=== PATIENT | female | born 1935 | race Hispanic/Latino ===

== ENCOUNTER 2017-07-21 14:50 | Emergency (ER) | payer MEDICARE, MEDICAID ==
[2017-07-21 15:11] VITALS: BMI 26.1
[2017-07-21] MEDS ORDERED: Sodium Chloride 0.9% 1,000 ML IV STA (15:14)
[2017-07-21] MEDS ORDERED: Morphine 4 mg/ml ISec IVP STA (15:14)
--- NOTE | 2017-07-21 16:04 | ED PDOC ---
Arrival/HPI - General Chief Complaint: Trauma Time Seen by Provider: 07/21/17 15:14 - History of Present Illness Narrative History of Present Illness (Text): 07/21/17 16:05 82yo female with LLE pain after a mechanical fall 6 days ago. Pt states she had a mechanical fall and recalls the event. States she has pain over her neck, ribs , R. elbow and LLE. Denies head injury. States she ambulates with a cane and has been ambulating since her fall. No other complaints. Past Medical History - Provider Review Nursing Documentation Reviewed: Yes - Infectious Disease Hx of Infectious Diseases: None - Tetanus Immunization Tetanus Immunization: Unknown - Cardiac Hx Congestive Heart Failure: No Hx SD: Yes Hx Hypertension: Yes Hx Internal Defibrillator: No Hx Pacemaker: No - Pulmonary Hx Pneumonia: Yes - Neurological HX Cerebrovascular Accident: No Hx Seizures: Yes (LAST SEIZURE 3 WEEKS AGO) - HEENT Hx Cataracts: Yes (BILATERAL CATARACT SURGERY) Other/Comment: WEARS RX GLASSES - Renal Hx Renal Disorder: No - Endocrine/Metabolic Hx Endocrine Disorders: No - Hematological/Oncological Other/Comment: RECTAL BLEEDING - Integumentary Hx Dermatological Disorder: No - Musculoskeletal/Rheumatological Hx Arthritis: Yes - Gastrointestinal Hx Diverticulitis: Yes - Genitourinary/Gynecological Hx Genitourinary Disorders: No - Psychiatric Hx Anxiety: Yes Hx Depression: No Hx Emotional Abuse: No Hx Physical Abuse: No Hx Substance Use: No - Surgical History Hx Appendectomy: Yes Hx Cardiac Catheterization: No Hx Cholecystectomy: Yes Hx Coronary Stent: No Hx Open Heart Surgery: No Hx Valve Replacement: No - Anesthesia Hx Anesthesia Reactions: No Hx Malignant Hyperthermia: No - Suicidal Assessment Feels Threatened In Home Enviroment: No Family/Social History Family/Social History: Unknown Family HX Smoking Status: Former Smoker Hx Alcohol Use: No Hx Substance Use: No Hx Substance Use Treatment: Yes Allergies/Home Meds Allergies/Adverse Reactions: Allergies amoxicillin Allergy (Verified 07/21/17 15:08) RASH Penicillins Allergy (Verified 07/21/17 15:08) RASH Home Medications: Home Meds Medication Instructions Recorded Confirmed Carvedilol [Coreg] 25 mg PO DAILY 07/21/17 07/21/17 Lisinopril [Zestril] 2.5 mg PO DAILY 07/21/17 07/21/17 Phenytoin, Extended [Dilantin 100 mg PO TID 07/21/17 07/21/17 Kapseals] oxyCODONE [oxyCODONE Immediate 15 mg PO PRN PRN 07/21/17 07/21/17 Release Tab] Physical Exam - Physical Exam Narrative Physical Exam (Text): 07/21/17 16:08 - Review of Systems Constitutional: Normal. absent: Fatigue, Weight Change, Fevers Eyes: Normal ENT: denies sore throat, denies tristhmus Respiratory: Normal. absent: SOB, Cough, Sputum Cardiovascular: absent: Chest Pain, Palpitations, Syncope Gastrointestinal: Normal. absent: Abdominal Pain, Diarrhea, Nausea, Vomiting Genitourinary: Normal. absent: Dysuria, Frequency, Hematuria, vaginal bleeding Musculoskeletal: Arthralgias, Back Pain, Neck Pain Skin: no rashes, no erythema Neurological: absent: Focal Weakness Endocrine: Normal Hemo/Lymphatic: Normal Psychiatric: No suicidal or homicidal ideations Physical exam Patient appears age appropriate in no distress, speaking full sentences without difficulty Head atraumatic. No nasal bone deformity or tenderness, no facial or jaw pain/ swelling. No neck midline tenderness, thoracic and lumbar spine with no midline tenderness. Pt moving b/l upper and lower extremities without difficulty, 5/5 strength, with full active and passive ROM. Distal neurovasc fully intact. Abd soft/nt/nd, no hematomas, no peritoneal signs. Neg. pelvic rock. - Systems Exam Head: Present: Atraumatic, Normocephalic Pupils: Present: PERRL Extroacular Muscles: Present: EOMI Conjunctiva: Present: Normal Mouth: Present: Moist Mucous Membranes Neck: Present: Normal Range of Motion. Paraspinal tenderness over the R. lower neck. No: MIDLINE TENDERNESS Respiratory/Chest: Present: Clear to Auscultation, Good Air Exchange. No: Respiratory Distress, Accessory Muscle Use, Tachypneic Cardiovascular: Present: Regular Rate and Rhythm, Normal S1, S2, Peripheal Pulses Present. No: Murmurs Abdomen: Present: Normal Bowel Sounds. No: Tenderness, Distention, Peritoneal Signs, Rebound, Guarding Back: Present: Normal Inspection. No: Midline Tenderness, Paraspinal Tenderness Upper Extremity: Present: R. elbow with ecchymosis, but full active and passive ROM Lower Extremity: Present: LLE with diffuse ecchymosis over the anterior thigh, knee, ankle. Distal neurovasc. intact. No: Cyanosis. RLE unremarkable on examination. Neurological: Present: GCS=15, Speech Normal, cranial nerves II through XII fully intact with no cerebellar abnormality, neurosensory fully intact. No focal neurological deficits. Skin: Present: Warm, Dry, Normal Color. No: Rashes Lymphatic: Present: OX3, NI, NC Psychiatric: Present: Alert, Oriented x 3, Normal Insight, Normal Concentration Vital Signs Reviewed: Yes Vital Signs Pulse Resp BP Pulse Ox 07/21/17 18:13 76 18 123/69 97 07/21/17 15:06 76 20 153/69 H 100 Blood Pressure: Hypertensive Pulse: Regular Respiratory Rate: Normal Appearance: Positive for: Non-Toxic, Comfortable Pain Distress: Mild Mental Status: Positive for: Alert and Oriented X 3. No: Confused, Agitated, Lethargic Medical Decision Making ED Course and Treatment: 07/21/17 16:22 82yo female after a mechanical fall, R. elbow and LLE contusions. b/l rib pains , with good insp/exp effort. Paraspinal neck tenderness. xrays and CTs ordered, along with pain meds and labs. 07/21/17 18:08 L. knee xray with possible fx. CT ordered. 07/21/2017 17:[address] IMPRESSION: 1. No acute intracranial abnormality. 2. Remote right LIFESTYLE DIRECTOR and MCA LIFESTYLE DIRECTOR watershed territory infarctions. 3. 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 4. Mild chronic microangiopathic changes and moderate age-related global parenchymal volume loss. Dictator: Blanca Sepulveda MD 07/21/2017 17:44 Neck/Chest/Abdomen/Pelvis CT IMPRESSION: 1. No acute findings. No evidence of pneumothorax, lung contusion, pneumoperitoneum or hemoperitoneum or acute fracture. 2. Additional chronic as described above. 3. Enlarged right thyroid lobe with a nodule in the lower pole and retrosternal extension. A dedicated thyroid ultrasound on a nonemergent basis is recommended for further evaluation. Dictator: Blanca Sepulveda MD 07/21/17 elbow, femur, ankle xrays with no fx's or dislocations. interpreted by me. FINDINGS: CT knee (ordered due to questionable fx on xray) Bones/joints: The distal femur is intact. Proximal tibia is intact. Proximal fibula is intact. Patella is intact. Bony structures are osteopenic. There is mild narrowing of the medial joint. Lateral and patellofemoral joint spaces are maintained. Soft tissues: There is soft tissue swelling in the anterior soft tissues inferior to the patella. There is no effusion in the suprapatella bursa. There are vascular calcifications.. IMPRESSION: Anterior soft tissue swelling; osteopenia and mild degenerative change, no fracture or or effusion Dictated and Authenticated by: Shaye Light MD7 20:08 07/21/17 20:26 pt ambulates with a cane. states she ambulates with a cane at home. ambulated in the ER without difficulty. pt states she wants to go home and she feels comfortable being dc'd home with outpatient f/u. pt states she lives with her daughter. will be given percocet for pain at home. pt states she's had percocet in the past and it did not make her drowsy and she tolerated it well. had an extensive d/w pt that although xrays are negative for any acute bony abnormality, it is still very important to fu with pmd and ortho specialist for further w/u and testing such as MRI to r/o any ligamentous/tendenous/meniscal injury. Pt verbalized full understanding of above discussion. Pt states she understands to return to the ER right away for new or worsening symptoms or for inability to f/u with PMD or specialist as instructed. Patient states that she fully agrees with and understands discharge instructions. States that she agrees with the plan and disposition. Verbalized and repeated discharge instructions and plan. I have given the patient opportunity to ask any additional questions. - Lab Interpretations Lab Results: 07/21/17 16:00 07/21/17 16:00 Lab Results 07/21/17 16:00: WBC 6.7, RBC 3.62, Hgb 11.4 L, Hct 34.0 L, MCV 93.9, MCH 31.5, MCHC 33.5, RDW 13.2, Plt Count 130, MPV 9.0, Gran % 57.9, Lymph % (Auto) 27.3, [place] % (Auto) 9.0 H, Eos % (Auto) 5.4 H, Baso % (Auto) 0.4, Gran # 3.86, Lymph # 1.8, [place] # 0.6, Eos # 0.4, Baso # 0.03 07/21/17 16:00: PT 11.4, INR 1.06, APTT 25.0 07/21/17 16:00: Sodium 143, Potassium 4.1, Chloride 109 H, Carbon Dioxide 24, Anion Gap 14, BUN 21, Creatinine 1.1, Est GFR ( Amer) 58, Est GFR (Non- Af Amer) 48, Random Glucose 90, Calcium 8.9, Total Bilirubin 0.6, AST 40 H, ALT 32, Alkaline Phosphatase 93, Total Protein 7.0, Albumin 3.7, Globulin 3.3, Albumin/Globulin Ratio 1.1 07/21/17 15:30: Phenytoin 25 H* - RAD Interpretation Radiology Orders: 07/21/17 15:15 HEAD W/O CONTRAST [CT] Stat NECK,CHEST,ABD,PELVIS W/O CONT [CT] Stat ANKLE LEFT 3 VIEWS ROUTINE [RAD] Stat ELBOW RIGHT 3 VIEWS ROUTINE [RAD] Stat FEMUR 1 VIEW LT [RAD] Stat KNEE LEFT 2 VIEWS (AP & LAT) [RAD] Stat 07/21/17 18:07 KNEE WITHOUT CONTRAST LEFT [CT] Stat - Medication Orders Current Medication Orders: Discontinued Medications Sodium Chloride (Sodium Chloride 0.9%) 1,000 mls @ 1,000 mls/hr IV .Q1H STA Stop: 07/21/17 16:13 Last Admin: 07/21/17 15:48 Dose: 1,000 mls/hr eMAR Start Stop Document 07/21/17 15:48 (Rec: 07/21/17 15:49 [id number]) Intravenous Solution Start Date 07/21/17 Start Time 15:48 End Date 07/21/17 End time 16:48 Total Infusion Time 60 Morphine Sulfate (Morphine) 4 mg IVP STAT STA Stop: 07/21/17 15:15 Last Admin: 07/21/17 15:47 Dose: 4 mg MAR Pain Assessment Document 07/21/17 15:47 MR (Rec: 07/21/17 15:48 [id number]) Pain Reassessment Is this a pain reassessment? No Sleep Is patient sleeping during reassessment? No Presence of Pain Presence of Pain Yes Pain Scale Used Pain Scale Used Numeric Location Left, Right or Bilateral Bilateral Pain Location Body Site Neck Shoulder Hip Leg Description Description Constant Intensity of Pain at present 8 Pain Behavior Moaning Crying Irritability Withdrawal from Touch Facial Grimacing Aggravating Factors Changing Position Alleviating Factors/Management Medication Techniques Alleviating Factors Medication IVP Administration Document 07/21/17 15:47 MR (Rec: 07/21/17 15:48 MR [id number]) Charges for Administration # of IVP Administrations 1 Disposition/Present on Arrival - Present on Arrival Any Indicators Present on Arrival: No History of DVT/PE: No History of Uncontrolled Diabetes: Yes Urinary Catheter: No History of Decub. Ulcer: No History Surgical Site Infection Following: None - Disposition Have Diagnosis and Disposition been Completed?: Yes Diagnosis: Fall Disposition: HOME/ ROUTINE Disposition Time: 20:30 Patient Plan: Discharge Condition: GOOD Discharge Instructions (ExitCare): Fall Prevention for Older Adults (ED), Contusion in Adults (ED) Additional Instructions: PLEASE RETURN TO THE EMERGENCY DEPARTMENT FOR NEW OR WORSENING SYMPTOMS. RETURN RIGHT AWAY IF YOU CANNOT FOLLOW UP WITH YOUR PRIMARY CARE DOCTOR, CLINIC, OR SPECIALIST IN 1-2 DAYS. Prescriptions: oxyCODONE/Acetaminophen [Percocet 5/325 mg Tab] 1 ea PO TID #12 tab Referrals: PCP,LASHON [Primary Care Provider] - Follow up with primary Rashad Farrell MD [Staff Provider] - Follow up with primary Juvencio Mendoza MD [Staff Provider] - Follow up with primary Francisco Woodson DO [Staff Provider] - Follow up with primary Forms: [employer] (Greek)
[2017-07-21 16:17] LABS: BASO # 0.03 K/mm3 (0.0-2.0); BASO % 0.4 % (0.0-3.0); EOS # 0.4 (0.0-0.7); EOS % 5.4 % (1.5-5.0); GRAN # 3.86 (1.4-6.5); GRAN % 57.9 % (50.0-68.0); LYMPH # 1.8 (1.2-3.4); LYMPH % 27.3 % (22.0-35.0); MEAN CELL VOLUME 93.9 fl (80.0-105.0); MEAN CORPUSCULAR HEMOGLOBIN 31.5 pg (25.0-35.0); MEAN CORPUSCULAR HGB CONC 33.5 g/dl (31.0-37.0); MONO # 0.6 (0.1-0.6); RED CELL DISTRIBUTION WIDTH 13.2 % (11.5-14.5); WHITE BLOOD COUNT 6.7 10^3/ul (4.5-11.0)
[2017-07-21 16:31] LABS: ALB/GLOB RATIO 1.1 (1.1-1.8); BILIRUBIN,TOTAL 0.6 mg/dL (0.2-1.3); CALCIUM 8.9 mg/dL (8.4-10.5); POTASSIUM 4.1 mmol/L (3.6-5.0)
[2017-07-21 16:51] LABS: INR 1.06 (0.93-1.08)
--- NOTE | 2017-07-21 17:10 | CT ---
PROCEDURE: CT HEAD WITHOUT CONTRAST. HISTORY: Fall COMPARISON: None available. TECHNIQUE: Axial computed tomography images were obtained through the head/brain without intravenous contrast. Radiation dose: Total exam DLP = 725.84 mGy-cm. This CT exam was performed using one or more of the following dose reduction techniques: Automated exposure control, adjustment of the mA and/or kV according to patient size, and/or use of iterative reconstruction technique. FINDINGS: HEMORRHAGE: No intracranial hemorrhage. BRAIN: There is cystic encephalomalacia in the right occipital lobe and parieto-occipital watershed territory. There is an old infarction in the left parasagittal frontal lobe. There are mild chronic microangiopathic changes. There is no mass, mass effect or abnormal extra-axial fluid collection. There are coarse atherosclerotic calcifications in the cavernous carotid arteries. VENTRICLES: There is moderate age-related global parenchymal volume loss and proportionate enlargement of the ventricles and cortical sulci. CALVARIUM: There is mild hyperostosis frontalis interna. PARANASAL SINUSES: There is moderate mucosal thickening in the right maxillary sinus and mild mucosal thickening in the ethmoid air cells and left maxillary sinus. MASTOID AIR CELLS: Predominantly clear. OTHER FINDINGS: None. IMPRESSION: 1. No acute intracranial abnormality. 2. 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 3. 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 4. Mild chronic microangiopathic changes and moderate age-related global parenchymal volume loss.
--- NOTE | 2017-07-21 17:46 | CT ---
PROCEDURE: CT Neck, Chest, Abdomen and Pelvis without intravenous contrast HISTORY: Fall COMPARISON: None. TECHNIQUE: CT scan of the neck, chest, abdomen and pelvis was performed without administration of intravenous contrast. Oral contrast was not administered. Coronal and sagittal reformatted images were obtained. Radiation dose: Total exam DLP = 2345.67 mGy-cm. This CT exam was performed using one or more of the following dose reduction techniques: Automated exposure control, adjustment of the mA and/or kV according to patient size, and/or use of iterative reconstruction technique. FINDINGS: CT NECK: The oropharynx, nasopharynx, oral cavity, hypopharynx, vocal cords and subglottic region are grossly normal in appearance. No evidence of soft tissue emphysema or airway obstruction. The parotid glands and submandibular glands are normal in size and appearance. There is asymmetric enlargement of the right thyroid gland with a low-attenuation nodule in the lower pole and retrosternal extension. The left thyroid lobe is grossly normal in appearance. No pathologic lymphadenopathy. CT CHEST WITHOUT CONTRAST: LUNGS: There is mild paraseptal emphysema in the upper lobes. There is scattered centrilobular emphysema in the lungs. There are fibrotic changes in the lower lobes, worse on the left. There is bibasilar atelectasis. MEDIASTINUM: There is mild cardiomegaly. Normal caliber aorta and pulmonary arterial trunk. No pericardial effusion. LYMPH NODES: No pathologic lymphadenopathy. PLEURA: No pneumothorax. No pleural fluid. BONES: Unremarkable. OTHER FINDINGS: None. CT ABDOMEN AND PELVIS: LIVER: The liver is normal in size. No gross lesion or ductal dilatation. GALLBLADDER AND BILE DUCTS: Not visualized. PANCREAS: The pancreas is normal in size. No gross lesion or ductal dilatation. SPLEEN: The spleen is normal in size. ADRENALS: Both adrenal glands are normal without discrete nodule. KIDNEYS AND URETERS: There is cortical atrophy of both kidneys. There are multiple cortical simple cysts and parapelvic cysts in the left kidney. VASCULATURE: There are atherosclerotic aortoiliac calcifications. No aortic aneurysm. BOWEL: The small bowel loops are normal in caliber. There is sigmoid diverticulosis without CT evidence for acute diverticulitis. APPENDIX: Not visualized. PERITONEUM: No free fluid. No free air. LYMPH NODES: No enlarged lymph nodes. BLADDER: Unremarkable. REPRODUCTIVE: Unremarkable. BONES: No acute fracture. OTHER FINDINGS: None. IMPRESSION: 1. No acute findings. No evidence of pneumothorax, lung contusion, pneumoperitoneum or hemoperitoneum or acute fracture. 2. Additional chronic findings as described above. 3. Enlarged right thyroid lobe with a nodule in the lower pole and retrosternal extension. A dedicated thyroid ultrasound on a nonemergent basis is recommended for further evaluation.
[2017-07-21 18:14] VITALS: RESP 18; O2SAT 97
--- NOTE | 2017-07-21 18:35 | CARD ---
APPROVED REPORT EKG Measurement Heart [id number] ID [id number] <Conclusion> Normal sinus rhythm Inferior infarct, age undetermined Abnormal ECG
--- NOTE | 2017-07-21 18:42 | CARD ---
APPROVED REPORT EKG Measurement Heart [id number] <Conclusion> sinus rhythm Inferior infarct, age undetermined Abnormal ECG
--- NOTE | 2017-07-21 20:06 | CT ---
EXAM: CT Left Lower Extremity Without Intravenous Contrast, Knee EXAM DATE/TIME: 07/21/2017 6:07 PM CLINICAL HISTORY: 82 years old, female; Pain; Knee; Left; Additional info: Fall, RO FX TECHNIQUE: Axial computed tomography images of the left knee without intravenous contrast. All CT scans at this facility use one or more dose reduction techniques, viz.: automated exposure control; ma/kV adjustment per patient size (including targeted exams where dose is matched to indication; i.e. head); or iterative reconstruction technique. Coronal and sagittal reformatted images were created and reviewed. COMPARISON: DX - KNEE LEFT 2 VIEWS (AP LAT) 07/21/2017 5:20:57 PM FINDINGS: Bones/joints: The distal femur is intact. Proximal tibia is intact. Proximal fibula is intact. Patella is intact. Bony structures are osteopenic. There is mild narrowing of the medial joint. Lateral and patellofemoral joint spaces are maintained. Soft tissues: There is soft tissue swelling in the anterior soft tissues inferior to the patella. There is no effusion in the suprapatella bursa. There are vascular calcifications.. IMPRESSION: Anterior soft tissue swelling; osteopenia and mild degenerative change, no fracture or or effusion
[2017-07-21 20:48] VITALS: BP 123/86; PULSE 83
--- NOTE | 2017-07-22 08:22 | RAD ---
PROCEDURE: Left Knee Radiographs. HISTORY: Pain. COMPARISON: None. FINDINGS: BONES: There is no acute displaced fracture or bone destruction. Bone alignment is normal. There is diffuse bone demineralization. JOINTS: There is mild tricompartmental degenerative osteoarthrosis, worse in the medial compartment. . JOINT EFFUSION: None. OTHER FINDINGS: Atherosclerotic vascular calcifications are present. IMPRESSION: No acute fracture or dislocation. 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
--- NOTE | 2017-07-22 09:52 | RAD ---
PROCEDURE: Left femur HISTORY: Trauma COMPARISON: None TECHNIQUE: Standard protocol for this study/examination. FINDINGS: No significant/acute osseous, articular or soft tissue abnormalities. IMPRESSION: No acute findings related to/accounting for the clinical presentation.
--- NOTE | 2017-07-22 10:34 | RAD ---
PROCEDURE: Left Ankle Radiographs. HISTORY: Fall COMPARISON: None FINDINGS: BONES: There is diffuse bone demineralization. There is no acute displaced fracture or bone destruction. Bone alignment is normal. JOINTS: Normal. Ankle mortise maintained. Talar dome intact SOFT TISSUES: There is mild periarticular subcutaneous edema. OTHER FINDINGS: None. IMPRESSION: No acute fracture or dislocation.
--- NOTE | 2017-07-22 10:35 | RAD ---
PROCEDURE: Radiographs of the right elbow. HISTORY: fall COMPARISON: No prior. FINDINGS: BONES: There is no acute displaced fracture or bone destruction. Bone alignment is normal. There is periarticular bone demineralization. JOINTS: There is moderate degenerative osteoarthrosis in the medial compartment. SOFT TISSUES: There is a small calcification superior to the olecranon process identified on lateral projection JOINT EFFUSION: None. OTHER FINDINGS: None. IMPRESSION: No acute fracture or dislocation.
== END 2017-07-21 20:48 | disposition home or self-care (01) ==
LOC: ED 14:50
DX: S50.01XA Contusion of right elbow, initial encounter (principal); S70.12XA Contusion of left thigh, initial encounter; S80.02XA Contusion of left knee, initial encounter; S90.02XA Contusion of left ankle, initial encounter; W19.XXXA Unspecified fall, initial encounter; Y93.9 Activity, unspecified; Y92.9 Unspecified place or not applicable; Z87.891 Personal history of nicotine dependence; I25.2 Old myocardial infarction; I10 Essential (primary) hypertension
CPT/HCPCS: 70450; 70490; 71250; 73080; 73551; 73560; 73610; 73700; 74176; 80053; 80185; 85025; 85610; 85730; 93005; 96361; 96374; 99285; J2270; J7040

== ENCOUNTER 2017-10-17 00:22 | Inpatient (IN) | payer MEDICARE, MEDICAID ==
[2017-10-17 00:33] VITALS: BMI 27.4
[2017-10-17] MEDS ORDERED: Morphine 2 mg/ml ISec IVP STA (01:24)
--- NOTE | 2017-10-17 01:37 | ED PDOC ---
Arrival/HPI - General Chief Complaint: Abdominal Pain Time Seen by Provider: 10/17/17 00:29 Historian: Patient, Family - History of Present Illness Narrative History of Present Illness (Text): 10/17/17 01:40 An 82 year old female, whose past medical history includes diverticulitis, hypertension, seizure disorder, presents to the emergency department complaining of right lower abdominal discomfort for the past day and a half, associated with some nausea and vomiting, no diarrhea. According to family, patient also has a history of frequent falls, injuring her knees.Patient as per family fell this evening hitting her head. Patient notes some mild discomfort right anterior knee but denies any headache, chest pain, shortness of breath, any history of fever or chills or any other complaints at this time. Symptom Onset: Sudden Symptom Course: Unchanged Activities at Onset: Rest Context: Home Past Medical History - Provider Review Nursing Documentation Reviewed: Yes - Infectious Disease Hx of Infectious Diseases: None - Tetanus Immunization Tetanus Immunization: Unknown - Cardiac Hx Congestive Heart Failure: No Hx CT: Yes Hx Hypertension: Yes Hx Internal Defibrillator: No Hx Pacemaker: No - Pulmonary Hx Pneumonia: Yes - Neurological HX Cerebrovascular Accident: No Hx Seizures: Yes - HEENT Hx Cataracts: Yes (BILATERAL CATARACT SURGERY) Other/Comment: WEARS RX GLASSES - Renal Hx Renal Disorder: No - Endocrine/Metabolic Hx Endocrine Disorders: No - Hematological/Oncological Other/Comment: RECTAL BLEEDING - Integumentary Hx Dermatological Disorder: No - Musculoskeletal/Rheumatological Hx Arthritis: Yes - Gastrointestinal Hx Diverticulitis: Yes - Genitourinary/Gynecological Hx Genitourinary Disorders: No - Psychiatric Hx Anxiety: Yes Hx Depression: No Hx Emotional Abuse: No Hx Physical Abuse: No Hx Substance Use: No - Surgical History Hx Appendectomy: Yes Hx Cardiac Catheterization: No Hx Cholecystectomy: Yes Hx Coronary Stent: No Hx Open Heart Surgery: No Hx Valve Replacement: No - Anesthesia Hx Anesthesia Reactions: No Hx Malignant Hyperthermia: No - Suicidal Assessment Feels Threatened In Home Enviroment: No Family/Social History - Physician Review Nursing Documentation Reviewed: Yes Family/Social History: No Known Family HX Smoking Status: Former Smoker Hx Alcohol Use: No Hx Substance Use: No Hx Substance Use Treatment: Yes Allergies/Home Meds Allergies/Adverse Reactions: Allergies amoxicillin Allergy (Verified 10/17/17 02:07) RASH Penicillins Allergy (Verified 10/17/17 02:07) RASH Home Medications: Home Meds Medication Instructions Recorded Confirmed Carvedilol [Coreg] 40 mg PO DAILY 07/21/17 10/17/17 Lisinopril [Zestril] 2.5 mg PO DAILY 07/21/17 10/17/17 Phenytoin, Extended [Dilantin 100 mg PO TID 07/21/17 10/17/17 [place]] oxyCODONE [oxyCODONE Immediate 15 mg PO PRN PRN 07/21/17 10/17/17 Release Tab] Review of Systems - Physician Review All systems were reviewed & negative as marked: Yes - Review of Systems Constitutional: absent: Fevers, Other (chills) Respiratory: absent: SOB Cardiovascular: absent: Chest Pain Gastrointestinal: Abdominal Pain (right lower abdominal discomfort), Nausea, Vomiting. absent: Diarrhea Musculoskeletal: Other (right anterior knee discomfort) Neurological: absent: Headache Physical Exam Vital Signs Reviewed: Yes Vital Signs Temp Pulse Resp BP Pulse Ox 10/17/17 05:27 83 17 153/75 H 96 10/17/17 02:29 97.9 F 76 17 140/64 96 Appearance: Positive for: Well-Appearing, Non-Toxic, Comfortable Pain Distress: None Mental Status: Positive for: Alert and Oriented X 3 - Systems Exam Head: Present: Atraumatic, Normocephalic Pupils: Present: PERRL Extroacular Muscles: Present: EOMI Conjunctiva: Present: Normal Mouth: Present: Moist Mucous Membranes Neck: Present: Normal Range of Motion Respiratory/Chest: Present: Clear to Auscultation, Good Air Exchange. No: Respiratory Distress, Accessory Muscle Use Cardiovascular: Present: Regular Rate and Rhythm, Normal S1, S2. No: Murmurs Abdomen: Present: Tenderness (right lower abdominal region), Normal Bowel Sounds. No: Distention, Peritoneal Signs Back: Present: Normal Inspection Upper Extremity: Present: Normal Inspection. No: Cyanosis, Edema Lower Extremity: Present: Normal ROM, Other (ecchymosis bruising knee b/l). No : Edema Neurological: Present: GCS=15, CN II-XII Intact, Speech Normal, Other (no focal neuro deficits) Skin: Present: Warm, Dry, Normal Color. No: Rashes Psychiatric: Present: Alert, Oriented x 3, Normal Insight, Normal Concentration Medical Decision Making ED Course and Treatment: 10/17/17 01:34 Impression: An 82 year old female with right lower abdominal discomfort with nausea and vomiting and some mild discomfort right anterior knee. Plan: -- EKG -- chest xray -- Radiology b/l knee -- CT Abd/pelvis -- CT head -- labs -- Urinalysis -- Morphine, IV fluids, Zofran -- Reassess and disposition Prior Visits: Notes and results from previous visits were reviewed. Patient was last seen in the emergency department on 07/21/17 for evaluation of left lower extremity pain s/p mechanical fall. Progress Notes: 10/17/17 01:46 EKG: Ordered, reviewed, and independently interpreted the EKG. Rate : 76 BPM Rhythm : NSR Interpretation : Nonspecific ST/T changes CT Head Without Intravenous Contrast FINDINGS: Atrophy. There is decreased attenuation in the periventricular white matter consistent with chronic small vessel ischemic disease. Again seen is encephalomalacia in the right parietal occipital lobes. 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 No intracranial hemorrhage. No intracranial edema. Minimal mucosal thickening in sinuses similar to prior. No depressed fractures. IMPRESSION: No acute intracranial injury. Dictated and Authenticated by: Rianna He MD 10/17/2017 4:25 AM Eastern Time ([place] & [place]) 10/17/17 04:32 Chest xray: No acute process, as read by me. 10/17/17 04:33 Radiology b/l knees: No acute process, as read by me. CT Abdomen and Pelvis Without Intravenous Contrast FINDINGS: Significant artifact from the patient's arm is present.Patient motion is present limiting exam. Bibasilar dependent atelectasis. Nonvisualization of the gallbladder. Prominence of the biliary ductal is active secondary to cholecystectomy. Recommend correlation with laboratory values. The liver, spleen, and pancreas appear grossly normal on this non-contrast study. There are numerous renal lesions bilaterally, some of which represent cysts and some of which are indeterminate. Lesions which cannot definitively be characterized as simple cysts are within the left kidney on images 75 image 73. Short-term followup ultrasound is recommended. The infrarenal abdominal aorta is slightly ectatic measuring 2.9 cm. No periaortic fluid. The patient appears to undergone partial colectomy with only the sigmoid colon visualized. There is a moderate amount of stool and air within the sigmoid colon and multiple diverticuli are noted. IMPRESSION: Study is significantly limited by artifact from patient motion as well as from the patient's overlying arms. No acute findings. Bilateral renal lesions suboptimally evaluated discussed in the body of the report. Infrarenal aortic ectasia. Partial colectomy. Dictated and Authenticated by: Rianna He MD 10/17/2017 4:43 AM Eastern Time ([place] & [place]) 10/17/17 05:[address] Sepulveda and medical records analyst, who agrees and accepts patient to their service. 10/17/17 05:41 Reevaluation: I have discussed the results and plan with the patient, who expresses understanding. Patient given the opportunity to ask question, all questions were answered and there is agreement with the plan to be admitted to the hospital. - Lab Interpretations Lab Results: 10/17/17 01:00 10/17/17 02:05 Lab Results 10/17/17 03:30: Urine Color Yellow, Urine Appearance Cloudy, Urine pH 6.0, Ur Specific [place] 1.020, Urine Protein 30 H, Urine Glucose (UA) Negative, Urine Ketones Trace H, Urine Blood Moderate H, Urine Nitrate Negative, Urine Bilirubin Negative, Urine Urobilinogen 0.2, Ur Leukocyte Esterase Moderate H, Urine RBC 1 - 3, Urine WBC 25 - 30, Ur Epithelial Cells 4 - 5, Urine Bacteria Mod 10/17/17 02:05: Sodium 143, Potassium 4.1, Chloride 110 H, Carbon Dioxide 24, Anion Gap 13, BUN 13, Creatinine 1.2, Est GFR ( Amer) 52, Est GFR (Non- Af Amer) 43, Random Glucose 113 H, Calcium 8.9, Total Bilirubin 0.6, AST 28, ALT 23, Alkaline Phosphatase 76, Total Protein 6.9, Albumin 3.6, Globulin 3.3, Albumin/Globulin Ratio 1.1, Lipase 83 10/17/17 01:00: WBC 8.3, RBC 4.03, Hgb 12.9, Hct 37.9, MCV 94.0, MCH 32.0, MCHC 34.0, RDW 13.1, Plt Count 155, MPV 9.8 10/17/17 01:00: PT 11.4, INR 1.04, APTT 19.6 L I have reviewed the lab results: Yes - RAD Interpretation Radiology Orders: 10/17/17 01:18 ABD & PELVIS W/O PO OR IV CONT [CT] Stat 10/17/17 01:19 CHEST PORTABLE [RAD] Stat 10/17/17 01:20 KNEE W PATELLA BILAT 3 VIEW [RAD] Stat 10/17/17 01:37 HEAD W/O CONTRAST [CT] Stat - EKG Interpretation Interpreted by ED Physician: Yes Type: 12 lead EKG - Medication Orders Current Medication Orders: Alprazolam (Xanax) 0.25 mg PO TID PRN; Protocol PRN Reason: Anxiety Stop: 10/24/17 06:34 Carvedilol (Coreg) 25 mg PO Q12 [facility] Ciprofloxacin (Cipro) 500 mg PO DAILY [facility] PRN Reason: Protocol Stop: 10/17/17 23:59 Enoxaparin Sodium (Lovenox) 30 mg SC DAILY [facility] PRN Reason: Protocol Sodium Chloride (Sodium Chloride 0.9%) 1,000 mls @ 100 mls/hr IV .Q10H [facility] Last Admin: 10/17/17 01:46 Dose: 100 mls/hr eMAR Start Stop Document 10/17/17 01:46 IT (Rec: 10/17/17 01:46 IT [email or web address] Intravenous Solution Start Date 10/17/17 Start Time 01:46 Lisinopril (Zestril) 2.5 mg PO DAILY [facility] Morphine Sulfate (Morphine) 2 mg IVP Q4H PRN PRN Reason: Pain, severe (8-10) Ondansetron HCl (Zofran Inj) 4 mg IVP Q4H PRN PRN Reason: Nausea/Vomiting Pantoprazole Sodium (Protonix Inj) 40 mg IVP Q12 [facility] Phenytoin Sodium (Dilantin) 100 mg PO TID [facility] Discontinued Medications Morphine Sulfate (Morphine) 2 mg IVP STAT STA Stop: 10/17/17 01:25 Last Admin: 10/17/17 01:46 Dose: 2 mg MAR Pain Assessment Document 10/17/17 01:46 IT (Rec: 10/17/17 01:46 [email or web address] Pain Reassessment Is this a pain reassessment? No Sleep Is patient sleeping during reassessment? No Presence of Pain Presence of Pain Yes Pain Scale Used Pain Scale Used Numeric Location Left, Right or Bilateral Right Upper or Lower Lower Pain Location Body Site Abdomen IVP Administration Document 10/17/17 01:46 IT (Rec: 10/17/17 01:46 IT [id number] Charges for Administration # of IVP Administrations 1 Ondansetron HCl (Zofran Inj) 4 mg IVP ONCE ONE Stop: 10/17/17 01:25 Last Admin: 10/17/17 01:45 Dose: 4 mg IVP Administration Document 10/17/17 01:45 IT (Rec: 10/17/17 01:45 IT [id number] Charges for Administration # of IVP Administrations 1 - Scribe Statement The provider has reviewed the documentation as recorded by the Ilana Tyson Provider Scribe Attestation: All medical record entries made by the Deyaniraibfederico were at my direction and personally dictated by me. I have reviewed the chart and agree that the record accurately reflects my personal performance of the history, physical exam, medical decision making, and the department course for this patient. I have also personally directed, reviewed, and agree with the discharge instructions and disposition. Disposition/Present on Arrival - Present on Arrival Any Indicators Present on Arrival: No History of DVT/PE: No History of Uncontrolled Diabetes: No Urinary Catheter: No History of Decub. Ulcer: No History Surgical Site Infection Following: None - Disposition Have Diagnosis and Disposition been Completed?: Yes Diagnosis: Abdominal pain, Frequent falls Disposition: HOSPITALIZED Disposition Time: 05:39 Patient Plan: Observation Patient Problems: Current Active Problems Problem Status Onset Abdominal pain Acute Frequent falls Acute Condition: STABLE
[2017-10-17] MEDS: Sodium Chloride 0.9% 1,000 ML IV SCH ×3 (01:46→23:44)
[2017-10-17 01:50] LABS: HEMATOCRIT 37.9 % (36.0-48.0); MEAN PLATELET VOLUME 9.8 fl (7.0-11.0); RED CELL DISTRIBUTION WIDTH 13.1 % (11.5-14.5); WHITE BLOOD COUNT 8.3 10^3/ul (4.5-11.0)
[2017-10-17 02:05] LABS: INR 1.04 (0.93-1.08)
[2017-10-17 02:06] LABS: PARTIAL THROMBOPLASTIN TIME 19.6 Seconds (25.1-36.5)
[2017-10-17 02:40] LABS: ALB/GLOB RATIO 1.1 (1.1-1.8); BILIRUBIN,TOTAL 0.6 mg/dL (0.2-1.3); CALCIUM 8.9 mg/dL (8.4-10.5); TOTAL PROTEIN 6.9 g/dL (5.8-8.3)
[2017-10-17 02:59] LABS: POTASSIUM 4.1 mmol/L (3.6-5.0)
[2017-10-17 03:55] LABS: URINE BILIRUBIN NEGATIVE (NEGATIVE); URINE BLOOD MODERATE (NEGATIVE); URINE GLUCOSE (UA) NEGATIVE (NEGATIVE); URINE KETONE TRACE mg/dL (NEGATIVE); URINE LEUKOCYTE ESTERASE MODERATE Leu/uL (NEGATIVE); URINE PROTEIN 30 mg/dL (<30 mg/dL); URINE UROBILINOGEN 0.2 E.U./dL (<1 E.U./dL)
[2017-10-17 04:08] LABS: URINE APPEARANCE CLOUDY (CLEAR); URINE COLOR YELLOW (YELLOW)
[2017-10-17 04:16] LABS: URINE BACTERIA MOD (NEG); URINE WBC 25 - 30 /hpf (0-6)
--- NOTE | 2017-10-17 04:25 | CT ---
EXAM: CT Head Without Intravenous Contrast EXAM DATE/TIME: 10/17/2017 1:37 AM CLINICAL HISTORY: 82 years old, female; Injury or trauma; Fall; Initial encounter; Concussion / head injury TECHNIQUE: Axial computed tomography images of the head/brain without intravenous contrast. All CT scans at this facility use one or more dose reduction techniques, viz.: automated exposure control; ma/kV adjustment per patient size (including targeted exams where dose is matched to indication; i.e. head); or iterative reconstruction technique. COMPARISON: CT - HEAD W/O CONTRAST 2017-07-21 16:36 FINDINGS: Atrophy. There is decreased attenuation in the periventricular white matter consistent with chronic small vessel ischemic disease. Again seen is encephalomalacia in the right parietal occipital lobes. 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 No intracranial hemorrhage. No intracranial edema. Minimal mucosal thickening in sinuses similar to prior. No depressed fractures. IMPRESSION: No acute intracranial injury.
--- NOTE | 2017-10-17 04:43 | CT ---
EXAM: CT Abdomen and Pelvis Without Intravenous Contrast EXAM DATE/TIME: 10/17/2017 1:18 AM CLINICAL HISTORY: 82 years old, female; Pain; Abdominal pain; Flank; Right lower quadrant (rlq); Additional info: Right lower abdominal pain TECHNIQUE: Axial computed tomography images of the abdomen and pelvis without intravenous contrast. All CT scans at this facility use one or more dose reduction techniques, viz.: automated exposure control; ma/kV adjustment per patient size (including targeted exams where dose is matched to indication; i.e. head); or iterative reconstruction technique. Coronal and sagittal reformatted images were created and reviewed. COMPARISON: CT - NECK,CHEST,ABD,PELVIS W/O CONT 2017-07-21 16:40 FINDINGS: Significant artifact from the patient's arm is present.Patient motion is present limiting exam. Bibasilar dependent atelectasis. Nonvisualization of the gallbladder. Prominence of the biliary ductal is active secondary to cholecystectomy.Recommend correlation with laboratory values. The liver, spleen, and pancreas appear grossly normal on this non-contrast study. There are numerous renal lesions bilaterally, some of which represent cysts and some of which are indeterminate. Lesions which cannot definitively be characterized as simple cysts are within the left kidney on images 75 image 73. Short-term followup ultrasound is recommended. The infrarenal abdominal aorta is slightly ectatic measuring 2.9 cm. No periaortic fluid. The patient appears to undergone partial colectomy with only the sigmoid colon visualized. There is a moderate amount of stool and air within the sigmoid colon and multiple diverticuli are noted. IMPRESSION: Study is significantly limited by artifact from patient motion as well as from the patient's overlying arms. No acute findings. Bilateral renal lesions suboptimally evaluated discussed in the body of the report. Infrarenal aortic ectasia. Partial colectomy.
[2017-10-17] MEDS ORDERED: Morphine 2 mg/ml ISec IVP PRN (06:24)
[2017-10-17] MEDS ORDERED: oxyCODONE 15 mg Immediate Release Tab PO PRN (06:33)
--- NOTE | 2017-10-17 06:48 | CP.PCM.HP ---
<Imtiaz Larson - Last Filed: 10/17/17 07:35> History of Present Illness - History of Present Illness History of Present Illness: 82 year old female with a past medical history of diverticulitis- s/p colectomy , hypertension, seizure disorder who presents to the emergency department complaining of right lower abdominal discomfort for the past 1.5 days. She also admits to some nausea, no vomiting or diarrhea. Furthermore, the patient has had frequent falls, and as per her family, she fell this evening hitting her head. Patient notes some mild discomfort right anterior knee but denies any headache, chest pain, shortness of breath, any history of fever or chills or any other complaints at this time. PMD: Dr. Dorsey Past Surgical History: colectomy due to diverticulitis PMH: hypertension, seizure disorder, diverticular disease Allergies: Amoxicillin, Penicillin Social: Lives with her son, ex-smoker, extremley hard of hearing. Present on Admission - Present on Admission Any Indicators Present on Admission: No Review of Systems - Constitutional Constitutional: As Per HPI Past Patient History - Infectious Disease Hx of Infectious Diseases: None - Tetanus Immunizations Tetanus Immunization: Unknown - Past Social History Smoking Status: Former Smoker - CARDIAC Hx Congestive Heart Failure: No Hx Heart Attack: Yes Hx Hypertension: Yes Hx Internal Defibrillator: No Hx Pacemaker: No - PULMONARY Hx Pneumonia: Yes - NEUROLOGICAL HX Cerebrovascular Accident: No Hx Seizures: Yes - HEENT Hx Cataracts: Yes (BILATERAL CATARACT SURGERY) Other/Comment: WEARS RX GLASSES - RENAL Hx Chronic Kidney Disease: No - ENDOCRINE/METABOLIC Hx Endocrine Disorders: No - HEMATOLOGICAL/ONCOLOGICAL Other/Comment: RECTAL BLEEDING - INTEGUMENTARY Hx Dermatological Problems: No - MUSCULOSKELETAL/RHEUMATOLOGICAL Hx Arthritis: Yes - GASTROINTESTINAL Hx Diverticulitis: Yes - GENITOURINARY/GYNECOLOGICAL Hx Genitourinary Disorders: No - PSYCHIATRIC Hx Anxiety: Yes Hx Depression: No Hx Emotional Abuse: No Hx Physical Abuse: No Hx Substance Use: No - SURGICAL HISTORY Hx Appendectomy: Yes Hx Cardiac Catheterization: No Hx Cholecystectomy: Yes Hx Coronary Stent: No Hx Open Heart Surgery: No Hx Valve Replacement: No - ANESTHESIA Hx Anesthesia Reactions: No Hx Malignant Hyperthermia: No Meds Allergies/Adverse Reactions: Allergies Allergy/AdvReac Type Severity Reaction Status Date / Time amoxicillin Allergy RASH Verified 10/17/17 02:07 Penicillins Allergy RASH Verified 10/17/17 02:07 Physical Exam - Constitutional Appears: Non-toxic, No Acute Distress - Head Exam Head Exam: ATRAUMATIC, NORMOCEPHALIC - Eye Exam Eye Exam: EOMI, Normal appearance - ENT Exam ENT Exam: Mucous Membranes Moist, Normal Oropharynx - Neck Exam Neck exam: Positive for: Normal Inspection - Respiratory Exam Respiratory Exam: Clear to Auscultation Bilateral, NORMAL BREATHING PATTERN - Cardiovascular Exam Cardiovascular Exam: RRR, +S1, +S2 - GI/Abdominal Exam GI & Abdominal Exam: Guarding (with palpation to RLQ), Tenderness (RLQ and RUQ) - Extremities Exam Extremities exam: Positive for: normal inspection - Back Exam Back exam: NORMAL INSPECTION. absent: CVA tenderness (L), CVA tenderness (R) - Neurological Exam Additional comments: hard of hearing, frequent orofacial movements, lip smacking - Psychiatric Exam Psychiatric exam: Normal Affect, Normal Mood - Skin Skin Exam: Dry, Intact, Normal Color, Warm Results - Vital Signs Recent Vital Signs: Last Vital Signs Temp 97.9 F 10/17/17 02:29 Pulse 83 10/17/17 05:27 Resp 17 10/17/17 05:27 BP 153/75 H 10/17/17 05:27 Pulse Ox 96 10/17/17 05:27 - Labs Result Diagrams: 10/17/17 01:00 10/17/17 02:05 Assessment & Plan - Assessment and Plan (Free Text) Assessment: 82 year old female with diverticulitis, seizure disorder, and hypertension who presents with 2 days of RLQ abdominal pain and tenderness. Plan: 1) RLQ abdominal pain - Morphine 2 mg q4h PRN for pain - Zofran 4 mg q4h - GI consulted, Dr. Bell - [facility] shock panel to assess for mesenteric ischemia or another ischemic process given the patient has extensive calcifications of the aorta - Renal US 2) Hypertension - Carvedilol 25 mg q12h - Lisinopril 3) Seizure disorder - Phenytoin - Xanax 4) UTI in patient allergic to penicillin - Ciprofloxacin 500 PO once a day given Cr clearance - Switch antibiotic as needed given ID approval needed to continue with Ciprofloxacin 5) History of frequent falls and s/p recent fall - Head CT negative for acute intracranial injury - Radiographs of the right knee performed, official read pending - Chest X-ray - Fall precautions - Seizure precautions 6) Fluids/DVT/GI prophylaxis - 100 ml/hr of NS - Protonix 40 mg IVP q12h - Lovenox 40 mg SC - Date & Time Date: 10/17/17 Time: 07:33 Decision To Admit - . Bed Request Type: Med/Surg <Paz Sepulveda - Last Filed: 10/17/17 08:04> Results - Vital Signs Recent Vital Signs: Last Vital Signs Temp 98.0 F 10/17/17 06:56 Pulse 89 10/17/17 06:56 Resp 17 10/17/17 06:56 BP 158/63 H 10/17/17 06:56 Pulse Ox 98 10/17/17 06:56 - Labs Result Diagrams: 10/17/17 01:00 10/17/17 02:05 Labs: Laboratory Results - last 24 hr 10/17/17 07:30 pO2 50 VBG pH 7.32 VBG pCO2 48.0 VBG HCO3 24.7 VBG Total CO2 26.2 VBG O2 Sat (Calc) 91.2 H VBG Base Excess -1.8 L VBG Potassium 3.9 Sodium 143.0 Chloride 112.0 H Glucose 113 H Lactate 0.9 FiO2 21.0 Venous Blood Potassium 3.9 Attending/Attestation - Attestation I have personally seen and examined this patient.: Yes I have fully participated in the care of the patient.: Yes I have reviewed all pertinent clinical information: Yes Notes (Text): 10/17/17 08:04 Patient was seen when she was in bed # 13 in the ER. Agree with history,physical examination and assessment.
[2017-10-17 07:52] LABS: VENOUS BLOOD GAS BASE EXCESS -1.8 mmol/L (0.0-2.0); VENOUS BLOOD PH 7.32 (7.32-7.43)
[2017-10-17] MEDS: Enoxaparin 30 mg Syringe SC SCH (09:04)
[2017-10-17] MEDS ORDERED: cefTRIAXone 1 gm 1 GM/100 ML BAG IVPB SCH (10:00)
--- NOTE | 2017-10-17 10:30 | CARD ---
APPROVED REPORT EKG Measurement Heart [id number] <Conclusion> Normal sinus rhythm Low voltage QRS, limb leads Possible Inferior infarct, age undetermined Artifact present, probably no change
--- NOTE | 2017-10-17 14:58 | RAD ---
PROCEDURE: Bilateral Knee Radiographs. HISTORY: injury COMPARISON: Left knee radiographs performed 07/21/17, bilateral knee radiographs performed 09/29/16 FINDINGS: BONES: Right Knee: No acute displaced fracture. Left Knee: No acute displaced fracture. JOINTS: Right Knee: No dislocation. Mild joint space narrowing most prominent, lateral compartment. Left knee: No dislocation. Mild joint space narrowing, most prominent medial compartment. SOFT TISSUES: Right Knee: Unremarkable. No evidence of radiopaque foreign body. Vascular calcifications. Left Knee: Unremarkable. No evidence of radiopaque foreign body. Vascular calcifications. JOINT EFFUSION: Right Knee: No significant joint effusion identified. Left Knee: No significant joint effusion identified. OTHER FINDINGS: None. IMPRESSION: Osseous demineralization. Degenerative changes. No acute displaced fracture, dislocation, or significant joint effusion identified. If symptoms persist or if there is continued clinical concern, x-ray follow-up in 7-10 days should be considered.
--- NOTE | 2017-10-17 15:00 | RAD ---
HISTORY: abdominal pain COMPARISON: Chest x-ray 04/05/13 TECHNIQUE: Chest, one view. FINDINGS: LUNGS: Biapical pleural thickening. No focal consolidation. Please note that chest x-ray has limited sensitivity for the detection of pulmonary masses. PLEURA: No significant pleural effusion identified. No definite pneumothorax . CARDIOVASCULAR: Cardiomegaly. Atherosclerotic calcifications of the aorta. OSSEOUS STRUCTURES: Degenerative changes. VISUALIZED UPPER ABDOMEN: Mild elevation of the right hemidiaphragm. OTHER FINDINGS: None. IMPRESSION: No focal consolidation, significant pleural effusion, or definite pneumothorax identified. Cardiomegaly. Atherosclerotic calcifications.
--- NOTE | 2017-10-17 15:29 | US ---
PROCEDURE: Ultrasound of the Kidneys HISTORY: abdominal pain, with renal lesions COMPARISON: None available. TECHNIQUE: Sonogram of the kidneys. FINDINGS: RIGHT KIDNEY: Measures: 10.0 cm. Normal in size, contour and echogenicity. No calculus. Multiple renal cortical cysts. Largest 3.3 cm in greatest dimension, in the mid kidney. No solid mass. LEFT KIDNEY: Measures: 10.6 cm. Normal in size, contour and echogenicity. Multiple simple cortical cysts, largest 3.4 cm in mid kidney. No solid mass. No calculus or hydronephrosis. OTHER FINDINGS: Spleen measures 7.2 cm in greatest dimension. Homogeneous echotexture. No mass. IMPRESSION: Multiple bilateral simple renal cortical cysts. Otherwise unremarkable examination
--- NOTE | 2017-10-17 16:47 | RAD ---
PROCEDURE: Right Hip Radiographs. HISTORY: Right sided pain COMPARISON: None. FINDINGS: BONES: No acute fracture. 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 No articular erosion. SOFT TISSUES: Normal. OTHER FINDINGS: None. IMPRESSION: No acute fracture. 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
--- NOTE | 2017-10-17 18:16 | CON ---
DATE: 10/17/2017 REQUESTING PHYSICIAN: REASON FOR CONSULTATION: I have been asked to see this 82-year-old female with known history of seizures hypertension, diverticulitis, status post colectomy who comes to the hospital with 2 days of right lower quadrant abdominal pain. The patient admits to start some nausea and had an episode of vomiting this morning. She denies any fevers or chills. She apparently has a history of frequent falls at home. CT scan of the abdomen and pelvis revealed multiple hypodense lesions in the kidneys as well as a distended urinary bladder with urinary retention. She currently denies any right lower quadrant abdominal pain. PAST MEDICAL HISTORY: As above. Again, she has a history of hypertension, seizure disorder diverticulitis. PAST SURGICAL HISTORY: Notable for colectomy for diverticulitis. SOCIAL HISTORY: She is a former cigarette smoker. She denies alcohol use. REVIEW OF SYSTEMS: 14-point review of systems is notable for right lower quadrant abdominal pain and frequent falls. MEDICATIONS: At home include Xanax, oxycodone 15 mg as needed for pain and phenytoin 100 mg three times a day, Zestril 2.5 mg once a day and Coreg 40 mg once a day. ALLERGIES: SHE IS ALLERGIC TO AMOXICILLIN AND PENICILLIN. PHYSICAL EXAMINATION: GENERAL: Pleasant well-developed female lying in bed, in no acute distress. VITAL SIGNS: Reveal temperature of 99.1, blood pressure 150/76, heart rate of 82. HEENT: Reveal sclerae to be white. Conjunctivae pink. NECK: Supple. CHEST: Reveal lungs to be clear. HEART: Exam reveals regular rate and rhythm. ABDOMEN: Soft. She has a palpable distended bladder in the pelvis. It extends above the pelvic rim. EXTREMITIES: Showed no edema. LABORATORY DATA: Reveal white blood cell count 8.3, hemoglobin 12.9. Chemistries reveal chloride of 110, blood sugar 113. IMPRESSION: An 82-year-old female with hypertension, seizure disorder, frequent falls with right lower lobe quadrant abdominal pain. CT scan of the abdomen and pelvis is notable for urinary distention from urinary retention. Her abdominal pain has subsided. RECOMMENDATIONS 1. We will request that a Quintana catheter be placed. 2. We will start the patient on clear liquid diet. I have us spoken with the patient's nurse to implement these last 2 orders. Rashad Bell MD [facility] # [id number]
[2017-10-18 07:29] VITALS: RESP 20
[2017-10-18] MEDS: Enoxaparin 30 mg Syringe SC SCH (09:40)
[2017-10-18] MEDS: Sodium Chloride 0.9% 1,000 ML IV SCH (11:35)
--- NOTE | 2017-10-18 12:59 | PN ---
DATE: 10/18/2017 SUBJECTIVE: The patient is lying in bed comfortable. She denies any further abdominal pain. A Quintana catheter was placed yesterday for urinary retention. The patient immediately drained 300 mL of urine. Several hours later, she drained 525 mL of urine over the subsequent 10 hours. She denies any nausea, vomiting. PHYSICAL EXAMINATION: VITAL SIGNS: Reveal temperature of 98.7, blood pressure 110/49, heart rate of 73. HEENT: Reveal sclerae to be white. Conjunctivae are pink. NECK: Supple. CHEST: Lungs are clear. HEART: Exam reveals regular rate and rhythm. ABDOMEN: Soft, nontender. EXTREMITIES: Show no edema. MEDICATIONS: Her current medications include Cipro 500 mg once a day, Coreg 25 mg twice a day, Dilantin 100 mg three times a day, Lovenox 30 mg once a day, morphine sulfate 2 mg IV p.r.n. severe pain, Protonix 40 mg IV q. 12 h., Xanax 0.25 mg three times a day as needed for anxiety, Zestril 2.5 mg once a day and Zofran 4 mg IV p.r.n., nausea, vomiting. LABORATORY DATA: Reveal no new labs. IMPRESSION: 1. Right lower quadrant abdominal pain, most likely secondary urinary retention. 2. Seizure disorder. RECOMMENDATIONS: The patient is to get an ultrasound of the bladder postvoid to check for residual. She is stable from a GI standpoint. Rashad Bell MD
--- NOTE | 2017-10-18 13:39 | CP.PCM.PN ---
<Crys Paulson - Last Filed: 10/18/17 13:49> Subjective - Date & Time of Evaluation Date of Evaluation: 10/18/17 Time of Evaluation: 13:29 - Subjective Subjective: Crys Paulson, PGY1, Medicine Progress Note for Dr Vazquez: Patient seen and examined at bedside. Pt was having discomfort with her walters catheter, and was hence removed. Pt voided after that. Pt c/o mild Rlq pain. Denies fever, chills, nausea, vomiting, epigastric pain, dysuria. Objective - Vital Signs/Intake and Output Vital Signs (last 24 hours): Temp Pulse Resp BP Pulse Ox 98.7 F 73 20 110/49 L 91 L 10/18/17 07:28 10/18/17 09:37 10/18/17 07:28 10/18/17 09:37 10/18/17 07:28 Intake and Output: 10/18/17 10/18/17 06:59 18:59 Intake Total 120 Output Total 525 Balance -405 - Medications Medications: Current Medications Alprazolam (Xanax) 0.25 mg PO TID PRN; Protocol PRN Reason: Anxiety Stop: 10/24/17 06:34 Last Admin: 10/18/17 09:38 Dose: 0.25 mg Carvedilol (Coreg) 25 mg PO Q12 COUNT INCLUDES THE [facility] Last Admin: 10/18/17 09:37 Dose: 25 mg Ciprofloxacin (Cipro) 500 mg PO DAILY COUNT INCLUDES THE [facility] PRN Reason: Protocol Stop: 10/21/17 23:59 Last Admin: 10/18/17 09:37 Dose: 500 mg Enoxaparin Sodium (Lovenox) 30 mg SC DAILY COUNT [facility]CLUDES [facility] PRN Reason: Protocol Last Admin: 10/18/17 09:40 Dose: 30 mg Sodium Chloride (Sodium Chloride 0.9%) 1,000 mls @ 100 mls/hr IV .Q10H COUNT INCLUDES THE [facility] Last Admin: 10/18/17 11:35 Dose: 100 mls/hr Lisinopril (Zestril) 2.5 mg PO DAILY COUNT [facility]CLUDES [facility] Last Admin: 10/18/17 09:41 Dose: Not Given Morphine Sulfate (Morphine) 2 mg IVP Q4H PRN PRN Reason: Pain, severe (8-10) Last Admin: 10/17/17 12:14 Dose: 2 mg Ondansetron HCl (Zofran Inj) 4 mg IVP Q4H PRN PRN Reason: Nausea/Vomiting Last Admin: 10/18/17 12:12 Dose: 4 mg Pantoprazole Sodium (Protonix Inj) 40 mg IVP Q12 COUNT [facility]CLUD[facility] Last Admin: 10/18/17 09:43 Dose: Not Given Phenytoin Sodium (Dilantin) 100 mg PO TID COUNT INCLUDES THE [facility] Last Admin: 10/18/17 13:24 Dose: 100 mg - Labs Labs: PT 11.4 SECONDS (9.4-12.5) 10/17/17 01:00 INR 1.04 (0.93-1.08) 10/17/17 01:00 APTT 19.6 Seconds (25.1-36.5) L 10/17/17 01:00 - Constitutional Appears: Non-toxic, No Acute Distress, Older Than Stated Age, Confused - Head Exam Head Exam: ATRAUMATIC, NORMOCEPHALIC - Eye Exam Eye Exam: EOMI, PERRL Pupil Exam: PERRL - ENT Exam ENT Exam: Mucous Membranes Moist - Respiratory Exam Respiratory Exam: Clear to Ausculation Bilateral. absent: Decreased Breath Sounds, Respiratory Distress - Cardiovascular Exam Cardiovascular Exam: RRR, +S1, +S2. absent: Murmur - GI/Abdominal Exam GI & Abdominal Exam: Soft, Tenderness, Normal Bowel Sounds. absent: Distended, Guarding, Rigid, Mass, Organomegaly, Rebound Additional comments: Mild TTP in RLQ - Extremities Exam Extremities Exam: absent: Calf Tenderness, Pedal Edema - Neurological Exam Neurological Exam: Alert, Awake, Oriented x3 - Psychiatric Exam Psychiatric exam: Normal Mood - Skin Skin Exam: Dry, Normal Color, Warm Assessment and Plan - Assessment and Plan (Free Text) Assessment: 82 year old female with diverticulitis s/p hemicolectomy, frequent falls, seizure disorder, and hypertension, presents with RLQ abdominal pain, UTI, urinary retention, s/p recent fall, found to be anxious: RLQ abdominal pain: 2/2 likely urinary retention, rule out diverticulitis/abdominal etiology/hip fracture (referred pain) - Pt voided after walters removal, however still complaining of lower abd pain, will check residual urine with bladder scan. - Tolerating CLD. Will advance diet to heart healthy diet. - Zofran 4 mg q4h prn - GI consulted, Dr. Bell. Advance diet as tolerated. Appreciate recs. - CT abd pelvis 10/17: bilateral renal lesions. Infrarenal aortic colectomy. Partial colectomy. Prev CT abd pelvis 07/2017 shows renal cysts as well. - Renal US 10/17 shows simple renal cysts Anxiety: - No prior history. Lives with son and his family. - will obtain Psych consult Hypertension - Carvedilol 25 mg q12h - Lisinopril Seizure disorder - Phenytoin - Xanax UTI: - Ciprofloxacin 500 PO once a day, D2 - F/u Urine culture History of frequent falls and s/p recent fall - Head CT negative for acute intracranial injury - Radiographs of the right knee performed, no acute fracture. Mild superior osteoarthritis of b/l hips. - Chest X-ray: cardiomegaly. atherosclerotic calcifications. - Fall precautions - Seizure precautions - PT eval recommends subacute rehab. Case discussed with social sciences lecturer. Will change patient's status to inpatient to find placement. Fluids/DVT/GI prophylaxis - 100 ml/hr of NS - Protonix 40 mg IVP q12h - Lovenox 40 mg SC Discussed with Dr Vazquez. Crys Paulson, PGY1 <Jean-Claude Vazquez - Last Filed: 10/18/17 15:06> Objective - Vital Signs/Intake and Output Vital Signs (last 24 hours): Temp Pulse Resp BP Pulse Ox 98.7 F 73 20 110/49 L 91 L 10/18/17 07:28 10/18/17 09:37 10/18/17 07:28 10/18/17 09:37 10/18/17 07:28 Intake and Output: 10/18/17 10/18/17 06:59 18:59 Intake Total 640 Balance 640 - Medications Medications: Current Medications Alprazolam (Xanax) 0.25 mg PO TID PRN; Protocol PRN Reason: Anxiety Stop: 10/24/17 06:34 Last Admin: 10/18/17 09:38 Dose: 0.25 mg Carvedilol (Coreg) 25 mg PO Q12 [facility] Last Admin: 10/18/17 09:37 Dose: 25 mg Ciprofloxacin (Cipro) 500 mg PO DAILY [facility] PRN Reason: Protocol Stop: 10/21/17 23:59 Last Admin: 10/18/17 09:37 Dose: 500 mg Enoxaparin Sodium (Lovenox) 30 mg SC DAILY COUNT INCLUDES THE [facility] PRN Reason: Protocol Last Admin: 10/18/17 09:40 Dose: 30 mg Sodium Chloride (Sodium Chloride 0.9%) 1,000 mls @ 100 mls/hr IV .Q10H COUNT INCLUDES THE [facility] Last Admin: 10/18/17 11:35 Dose: 100 mls/hr Lisinopril (Zestril) 2.5 mg PO DAILY COUNT INCLUDES THE [facility] Last Admin: 10/18/17 09:41 Dose: Not Given Morphine Sulfate (Morphine) 2 mg IVP Q4H PRN PRN Reason: Pain, severe (8-10) Last Admin: 10/17/17 12:14 Dose: 2 mg Ondansetron HCl (Zofran Inj) 4 mg IVP Q4H PRN PRN Reason: Nausea/Vomiting Last Admin: 10/18/17 12:12 Dose: 4 mg Pantoprazole Sodium (Protonix Inj) 40 mg IVP Q12 COUNT INCLUDES [facility] Last Admin: 10/18/17 09:43 Dose: Not Given Phenytoin Sodium (Dilantin) 100 mg PO TID COUNT INCLUDES THE [facility] Last Admin: 10/18/17 13:24 Dose: 100 mg - Labs Labs: PT 11.4 SECONDS (9.4-12.5) 10/17/17 01:00 INR 1.04 (0.93-1.08) 10/17/17 01:00 APTT 19.6 Seconds (25.1-36.5) L 10/17/17 01:00 Attending/Attestation - Attestation I have personally seen and examined this patient.: Yes I have fully participated in the care of the patient.: Yes I have reviewed all pertinent clinical information, including history, physical exam and plan: Yes Notes (Text): 10/18/17 15:01 82 year old female with past medical history of diverticulitis, anxiety and frequent falls who presented with complaint of right lower abdominal pain likely secondary to urinary retention. This improved after walters insertion which was later removed. Will check bladder scan prn for retention. GI evaluation was appreciated. CT and ultrasounds were reviewed. She also complained of frequent falls. Imaging studies were negative for fractures. PT evaluation was appreciated who recommended [facility]. Will discuss with rifle case repairer / social sciences lecturer. She is on xanax prn for anxiety and psychiatry evaluation was also requested. She is on antibiotics for UTI. Jean-Claude Vazquez MD Hospitalist.
[2017-10-18 18:00] LABS: ARTERIAL BLOOD GAS O2 CAPACITY 14.5 mL/dl (16-24); ARTERIAL BLOOD GAS O2 CONTENT 13.7 ML/dl (15-23); ARTERIAL BLOOD GAS PH 7.32 (7.35-7.45); ARTERIAL BLOOD HGB O2 SAT 91.1 % (95.0-98.0); CARBOXYHEMOGLOBIN 2.5 % (0.5-1.5); HHB 5.6 % (0-5); METHEMOGLOBIN 0.8 % (0.0-3.0)
[2017-10-18] MEDS ORDERED: Albuterol-Ipratrop 3 mg / 0.5 (3 ml) UD IH STA (23:46)
[2017-10-19 09:33] LABS: BASO # 0.03 K/mm3 (0.0-2.0); BASO % 0.3 % (0.0-3.0); EOS # 0.1 (0.0-0.7); EOS % 0.8 % (1.5-5.0); GRAN # 8.25 (1.4-6.5); GRAN % 77.4 % (50.0-68.0); HEMATOCRIT 35.1 % (36.0-48.0); LYMPH # 1.1 (1.2-3.4); MEAN CELL VOLUME 93.4 fl (80.0-105.0); MEAN CORPUSCULAR HEMOGLOBIN 31.6 pg (25.0-35.0); MEAN CORPUSCULAR HGB CONC 33.9 g/dl (31.0-37.0); MEAN PLATELET VOLUME 9.4 fl (7.0-11.0); MONO # 1.2 (0.1-0.6); MONO % 11.5 % (1.0-6.0); WHITE BLOOD COUNT 10.7 10^3/ul (4.5-11.0)
--- NOTE | 2017-10-19 09:43 | PCM.URO ---
Urology Progress Note - Objective Lab Studies: Reviewed (thanks for gu consult full note to be dictated) Lab Results Last 24 Hours: Laboratory Results - last 24 hr 10/18/17 10/19/17 17:57 09:20 WBC 10.7 D RBC 3.76 Hgb 11.9 L Hct 35.1 L MCV 93.4 MCH 31.6 MCHC 33.9 RDW 13.0 Plt Count 132 MPV 9.4 Gran % 77.4 H Lymph % (Auto) 10.0 L Bleckley % (Auto) 11.5 H Eos % (Auto) 0.8 L Baso % (Auto) 0.3 Gran # 8.25 H Lymph # 1.1 L Bleckley # 1.2 H Eos # 0.1 Baso # 0.03 pCO2 35 pO2 59.0 L HCO3 18.0 L ABG pH 7.32 L ABG Total CO2 19.1 L ABG O2 Saturation 94.2 L ABG O2 Content 13.7 L ABG Base Excess -7.3 L ABG Hemoglobin 10.7 L ABG Carboxyhemoglobin 2.5 H POC ABG HHb (Measured) 5.6 H ABG Methemoglobin 0.8 ABG O2 Capacity 14.5 L Hgb O2 Saturation 91.1 L FiO2 28.0 Intake & Output: Intake & Output 10/18/17 10/19/17 10/19/17 18:59 06:59 18:59 Intake Total 1240 240 Output Total 50 Balance 1190 240 Intake: IV 500 Right Forearm 500 Oral 740 240 Output: Urine 50 Urine, Voided 50 Other: # Bowel Movements 1 Vital Signs: Vital Signs - 24 hr 10/18/17 10/19/17 16:00 07:30 Temperature 98 F 98.6 F Pulse Rate 75 53 L Respiratory 20 20 Rate Blood Pressure 127/48 L 161/76 H O2 Sat by Pulse 90 L 92 L Oximetry
[2017-10-19 09:44] LABS: ALKALINE PHOSPHATASE 66 U/L (38-126); ALT/SGPT 30 U/L (7-56); AST/SGOT 41 U/L (14-36); BILIRUBIN,TOTAL 0.7 mg/dL (0.2-1.3); BLOOD UREA NITROGEN 13 mg/dL (7-21); CALCIUM 8.2 mg/dL (8.4-10.5); CARBON DIOXIDE 20 mmol/L (21-33); CHLORIDE 113 mmol/L (98-107); GFR AFRICAN-AMERICAN > 60; GLUCOSE,RANDOM 129 mg/dL (70-110); POTASSIUM 3.7 mmol/L (3.6-5.0); SODIUM 143 mmol/L (132-148); TOTAL PROTEIN 6.7 g/dL (5.8-8.3)
[2017-10-19] MEDS: Enoxaparin 30 mg Syringe SC SCH (11:53)
--- NOTE | 2017-10-19 12:26 | PN ---
DATE: 10/19/2017 SUBJECTIVE: The patient is lying in bed. She is awake but confused. Apparently, the patient was agitated last night and tried to climb out of bed. She has a health skin care specialist at her bedside for one-to-one observation. She currently denies any abdominal pain. She is incontinent of urine. OBJECTIVE: VITAL SIGNS: Reveal temperature of 98.6, blood pressure 161/76, heart rate of 53. HEENT: Reveal sclerae to be white. Conjunctivae pink. NECK: Supple. CHEST: Lungs clear. HEART: Reveals regular rate and rhythm. ABDOMEN: Soft, nontender. No mass. EXTREMITIES: Show no edema. LABORATORY DATA: Reveal white blood cell count 10.7, hemoglobin 11.9, chloride 113, bicarb 20. IMPRESSION: 1. Right lower quadrant abdominal pain secondary to urinary retention. 2. Altered mental status with confusion and agitation. 3. Seizure disorder. RECOMMENDATIONS: 1. Urology evaluation. 2. Supportive care. No further GI workup planned at this time. Rashad Bell MD
--- NOTE | 2017-10-19 16:33 | CP.PCM.PN ---
<Crys Paulson - Last Filed: 10/19/17 16:28> Subjective - Date & Time of Evaluation Date of Evaluation: 10/19/17 Time of Evaluation: 16:28 - Subjective Subjective: Crys Paulson, PGY1, Medicine Progress Note for Dr Vazquez: Patient seen and examined at bedside. Pt was agitated last night, requiring seroquel 50 mg PO and Ativan 2 mg IV overnight. This AM, pt is AOx2. Denies abdominal pain, nausea, vomiting. Pt is tolerating HHD well. As per son at bedside, he does not want her to go to subacute rehab (as recommended by PT). He states that she wants to take her home tomorrow AM (is amenable to get home services). As per nurse, pt is refusing NC when she gets confused. And she is saturating 90-92% at times, with NC on. No history of COPD or lung disease, but she does have 25 pack year smoking history. Objective - Vital Signs/Intake and Output Vital Signs (last 24 hours): Temp Pulse Resp BP Pulse Ox 98.6 F 77 20 160/77 H 92 L 10/19/17 07:30 10/19/17 11:54 10/19/17 07:30 10/19/17 11:54 10/19/17 07:30 Intake and Output: 10/19/17 10/19/17 06:59 18:59 Intake Total 240 Balance 240 - Medications Medications: Current Medications Alprazolam (Xanax) 0.25 mg PO TID PRN; Protocol PRN Reason: Anxiety Stop: 10/24/17 06:34 Last Admin: 10/18/17 09:38 Dose: 0.25 mg Carvedilol (Coreg) 25 mg PO Q12 [facility] Last Admin: 10/19/17 11:52 Dose: 25 mg Ciprofloxacin (Cipro) 500 mg PO DAILY [facility] PRN Reason: Protocol Stop: 10/21/17 23:59 Last Admin: 10/19/17 11:51 Dose: 500 mg Enoxaparin Sodium (Lovenox) 30 mg SC DAILY [facility] PRN Reason: Protocol Last Admin: 10/19/17 11:53 Dose: 30 mg Sodium Chloride (Sodium Chloride 0.9%) 1,000 mls @ 100 mls/hr IV .Q10H [facility] Last Admin: 10/18/17 11:35 Dose: 100 mls/hr Lisinopril (Zestril) 2.5 mg PO DAILY [facility] Last Admin: 10/19/17 11:54 Dose: 2.5 mg Lorazepam (Ativan) 0.5 mg IVP Q8H PRN; Protocol PRN Reason: Agitation Morphine Sulfate (Morphine) 2 mg IVP Q4H PRN PRN Reason: Pain, severe (8-10) Last Admin: 10/17/17 12:14 Dose: 2 mg Ondansetron HCl (Zofran Inj) 4 mg IVP Q4H PRN PRN Reason: Nausea/Vomiting Last Admin: 10/18/17 12:12 Dose: 4 mg Pantoprazole Sodium (Protonix Inj) 40 mg IVP Q12 [facility] Last Admin: 10/19/17 11:54 Dose: 40 mg Phenytoin Sodium (Dilantin) 100 mg PO TID [facility] Last Admin: 10/19/17 11:53 Dose: 100 mg Quetiapine Fumarate (Seroquel) 25 mg PO HS PRN; Protocol PRN Reason: agitation/psychosis - Labs Labs: 10/19/17 09:20 10/19/17 09:20 PT 11.4 SECONDS (9.4-12.5) 10/17/17 01:00 INR 1.04 (0.93-1.08) 10/17/17 01:00 APTT 19.6 Seconds (25.1-36.5) L 10/17/17 01:00 - Constitutional Appears: Non-toxic, Older Than Stated Age, Confused, Chronically Ill - Head Exam Head Exam: ATRAUMATIC, NORMOCEPHALIC - Eye Exam Eye Exam: PERRL. absent: Conjunctival injection, Scleral icterus Pupil Exam: PERRL - ENT Exam ENT Exam: Mucous Membranes Moist - Respiratory Exam Respiratory Exam: Clear to Ausculation Bilateral. absent: Rhonchi, Wheezes, Respiratory Distress - Cardiovascular Exam Cardiovascular Exam: RRR, +S1, +S2. absent: Murmur - GI/Abdominal Exam GI & Abdominal Exam: Soft, Normal Bowel Sounds. absent: Guarding, Rigid, Tenderness, Mass, Organomegaly, Rebound - Back Exam Back Exam: NORMAL INSPECTION - Neurological Exam Neurological Exam: Alert, Awake, Oriented x3 - Psychiatric Exam Psychiatric exam: Agitated - Skin Skin Exam: Dry, Normal Color, Warm Assessment and Plan - Assessment and Plan (Free Text) Assessment: 82 years old female with PMH diverticulitis s/p hemicolectomy, frequent falls, seizure disorder, and hypertension, presents with RLQ abdominal pain, UTI, urinary retention, s/p recent fall, also found to be anxious/agitated since day 2 of admission: Agitation/anxiety: -2/2 likely hospital associated delirium vs UTI associated vs dementia - Psych on board. Appreciate recs - Started on Seroquel and Ativan prn - UA shows mod leuk moisés and mod bacteria. Urine culture showing multiple species, poss contamination. - Completed 3 days of PO Cipro. - Psych c/s appreciated. f/u recs. - Cont to monitor mental status RLQ abdominal pain, resolved: 2/2 likely urinary retention, ruled out diverticulitis/abdominal etiology/hip fracture (referred pain) - Pt voiding after walters removal, bladder scan this AM showed 120 cc residual urine. - Urology on board. F/u recs. - Tolerating heart healthy diet. - GI consulted, Dr. Bell. Appreciate eval. Signed off. - CT abd pelvis 10/17: bilateral renal lesions. Infrarenal aortic colectomy. Partial colectomy. Prev CT abd pelvis 07/2017 shows renal cysts as well. - Renal US 10/17 shows simple renal cysts Hypertension - Carvedilol 25 mg q12h - Lisinopril Seizure disorder - Phenytoin - Xanax UTI: - Ciprofloxacin 500 PO once a day, D3, completed course. - Urine culture shows contamination. History of frequent falls and s/p recent fall - Head CT negative for acute intracranial injury - Radiographs of the right knee performed, no acute fracture. Mild superior osteoarthritis of b/l hips. - Chest X-ray: cardiomegaly. atherosclerotic calcifications. - Fall precautions - Seizure precautions - PT eval recommends subacute rehab. Case discussed with social services counselor. Will change patient's status to inpatient to find placement. Fluids/DVT/GI prophylaxis - 100 ml/hr of NS - Protonix 40 mg IVP q12h - Lovenox 40 mg SC PT: recommends subacute rehab Dispo: Lives with son and his family. Son refused subacute rehab. Would like to take her home tomorrow AM, with home services. Discussed with field case manager, can be discharged home. Discussed with Dr Vazquez. Crys Paulson, PGY1 <Jean-Claude Vazquez - Last Filed: 10/19/17 17:31> Objective - Vital Signs/Intake and Output Vital Signs (last 24 hours): Temp Pulse Resp BP Pulse Ox 99.5 F 80 20 133/71 100 10/19/17 17:11 10/19/17 17:11 10/19/17 17:11 10/19/17 17:11 10/19/17 17:11 Intake and Output: 10/19/17 10/19/17 06:59 18:59 Intake Total 240 Balance 240 - Medications Medications: Current Medications Alprazolam (Xanax) 0.25 mg PO TID PRN; Protocol PRN Reason: Anxiety Stop: 10/24/17 06:34 Last Admin: 10/18/17 09:38 Dose: 0.25 mg Carvedilol (Coreg) 25 mg PO Q12 [facility] Last Admin: 10/19/17 11:52 Dose: 25 mg Enoxaparin Sodium (Lovenox) 30 mg SC DAILY [facility] PRN Reason: Protocol Last Admin: 10/19/17 11:53 Dose: 30 mg Sodium Chloride (Sodium Chloride 0.9%) 1,000 mls @ 100 mls/hr IV .Q10H [facility] Last Admin: 10/18/17 11:35 Dose: 100 mls/hr Lisinopril (Zestril) 2.5 mg PO DAILY [facility] Last Admin: 10/19/17 11:54 Dose: 2.5 mg Lorazepam (Ativan) 0.5 mg IVP Q8H PRN; Protocol PRN Reason: Agitation Morphine Sulfate (Morphine) 2 mg IVP Q4H PRN PRN Reason: Pain, severe (8-10) Last Admin: 10/17/17 12:14 Dose: 2 mg Ondansetron HCl (Zofran Inj) 4 mg IVP Q4H PRN PRN Reason: Nausea/Vomiting Last Admin: 10/18/17 12:12 Dose: 4 mg Pantoprazole Sodium (Protonix Inj) 40 mg IVP Q12 [facility] Last Admin: 10/19/17 11:54 Dose: 40 mg Phenytoin Sodium (Dilantin) 100 mg PO TID [facility] Last Admin: 10/19/17 11:53 Dose: 100 mg Quetiapine Fumarate (Seroquel) 25 mg PO HS PRN; Protocol PRN Reason: agitation/psychosis - Labs Labs: 10/19/17 09:20 10/19/17 09:20 PT 11.4 SECONDS (9.4-12.5) 10/17/17 01:00 INR 1.04 (0.93-1.08) 10/17/17 01:00 APTT 19.6 Seconds (25.1-36.5) L 10/17/17 01:00 Attending/Attestation - Attestation I have personally seen and examined this patient.: Yes I have fully participated in the care of the patient.: Yes I have reviewed all pertinent clinical information, including history, physical exam and plan: Yes Notes (Text): 10/19/17 17:28 82 year old female with past medical history of diverticulitis, anxiety and frequent falls who presented with complaint of right lower abdominal pain likely secondary to urinary retention. This improved after walters insertion which was later removed. Continue with bladder scan prn. GI evaluation was appreciated. CT and ultrasounds were reviewed. She also complained of frequent falls. Imaging studies were negative for fractures. PT evaluation was appreciated who recommended [facility]. However patient and son are refusing stating they want to be discharged home with services tomorrow. Will discuss with physical therapy, field case manager and social services counselor. Yesterday patient was very anxious and agitated. Today this is better while son is at bedside. Psychiatry evaluation was requested. Will follow up with recommendations. She received antibiotics for UTI. Jean-Claude Vazquez MD Hospitalist.
[2017-10-19 17:12] VITALS: O2SAT 100
--- NOTE | 2017-10-19 23:45 | CON ---
DATE: HISTORY OF PRESENT ILLNESS: In short, the patient is an 82-year-old female with not known previous psychiatric history. The patient has multiple medical issues including diverticulitis, status post colectomy; hypertension; seizure disorder. The patient was admitted on the medical side for evaluation of abdominal pain, some nausea, no vomiting or diarrhea. The patient also has frequent falls and Psych consult was called for evaluation of altered mental status as well as periods of agitation and aggression. The patient was seen and examined today, had prolonged conversation with the bio medical technician as well as nursing staff. The patient currently is on one-to-one. The patient was evaluated with advanced nurse practitioner. The patient presented to be confused, mumbling something, there is no option to have meaningful conversation. The patient does not know where she is. Based on report from the bio medical technician, the patient had urinary retention and was agitated, improved after catheterization. The patient right now able to void by herself. This headline writer reviewed previous history. The patient has never been evaluated by psychiatrist, at least at the [facility]. The patient refused to give consent to speak to her son. VITAL SIGNS: Reviewed. Temperature 98.6, pulse 77, blood pressure 160/77, respiration 26, and oxygen saturation is 92%. MEDICATIONS: Reviewed. The patient is on Xanax 0.25 mg three times day; Coreg; ciprofloxacin 500 mg daily; Lovenox; Zestril; morphine; Zofran; Protonix; Dilantin; and sodium chloride. LABS: Reviewed. Hemoglobin and hematocrit are 11.9 and 35.9. Urinalysis showed leukocyte esterase, moderate blood. Notes from urologist reviewed. Discussed with the nurse practitioner for GI team. The patient had hip/pelvis x-ray which was done on 10/17/2017, no acute fracture. Spleen ultrasound also was done on 10/17/2017, multiple bilateral simple renal cortical cysts, otherwise nonspecific. Head CT scan also was done on 10/17/2017, no acute intracranial injury. Knee x-ray revealed demineralization and degenerative changes. Chest x-ray also was done, no focal consolidation, significant pleural effusion or definite pneumothorax identified. Abdominal and pelvic CT scan also was done which the patient motion as well as from the patient's overlying altered mental status, no acute findings, bilateral renal lesions suboptimally evaluated, discussed in the body of the report, infrarenal aortic ectasia, partial colectomy. MENTAL STATUS EXAMINATION: As this headline writer described above, the patient is confused but much calmer. There is no meaningful conversation possible at present moment. Intermittent eye contact. Speech was incoherent. The patient was not able to describe the mood, affect was moaning. Thought process disorganized. Thought content, the patient denied thoughts of harming herself or others, but the patient has episodes of restless and agitated behavior; as per nursing staff report, the patient was spitting and cursing at others. Insight and judgment impaired. Impulses are unpredictable. IMPRESSION: Most likely, the patient has hyperactive delirium, which is related to urinary tract infection, possible, as well as urinary retention. PLAN: Continue current management. Continue current medication. This headline writer will suggest Ativan as needed 0.5 mg three times a day p.r.n. for agitation. It could help the patient with seizures as well. In case of hallucinations and restless behavior at the nighttime, Seroquel will be started at 12.5 mg at the nighttime. We will follow up and advise accordingly. Hopefully, the patient's delirium stage will be improving. The patient was followed up by GI and Urology team. We will follow up and advise accordingly. Thank you very much for letting me to participate in the care of your patient. Jenny Moreno MD
[2017-10-20 00:25] VITALS: TEMP 99.9
[2017-10-20 07:23] LABS: BASO # 0.04 K/mm3 (0.0-2.0); BASO % 0.6 % (0.0-3.0); EOS # 0.4 (0.0-0.7); EOS % 5.2 % (1.5-5.0); GRAN # 4.43 (1.4-6.5); GRAN % 63.4 % (50.0-68.0); HEMATOCRIT 32.1 % (36.0-48.0); LYMPH # 1.3 (1.2-3.4); LYMPH % 18.3 % (22.0-35.0); MEAN CORPUSCULAR HEMOGLOBIN 31.4 pg (25.0-35.0); MEAN PLATELET VOLUME 9.7 fl (7.0-11.0); MONO # 0.9 (0.1-0.6); MONO % 12.5 % (1.0-6.0); RED CELL DISTRIBUTION WIDTH 13.4 % (11.5-14.5)
[2017-10-20 08:01] LABS: ALB/GLOB RATIO 0.9 (1.1-1.8); BILIRUBIN,TOTAL 0.5 mg/dL (0.2-1.3); CALCIUM 7.9 mg/dL (8.4-10.5); POTASSIUM 3.4 mmol/L (3.6-5.0); TOTAL PROTEIN 5.4 g/dL (5.8-8.3)
--- NOTE | 2017-10-20 08:26 | CON ---
DATE: 10/19/2017 She is being seen today for consultation. PRESENTATION: The patient is an 82-year-old female seen at bedside on the Medical Unit. She has one-to-one aide with her because the patient at times would become confused and climb out of bed. She is not hospital aggressive and she is directable, but she does require this type of supervision for safety. PAST MEDICAL HISTORY: Includes diverticulitis, hypertension, and seizure disorder. She presented to the emergency room on admission having fallen at home and complaining along with possibly hitting her head in that fall. She was at home with her son. The patient today has some confusion. She is aware she is in the [facility], but not day, time and she knows where she is. She has not been eating, she has been refusing food and according to the nurses' notes had urinary retention up until last night she had gotten somewhat difficult prior to voiding, but after that was pleasant and cooperative. She is being treated for urinary tract infection. CURRENT MEDICATIONS: Include Xanax 0.25 mg one p.o. t.i.d. p.r.n., carvedilol 25 mg one every 12 hours, Cipro 500 mg one p.o. daily, Lovenox 30 mg subcutaneous daily, lisinopril 2.5 mg one p.o. daily. She has morphine 2 mg IV push as needed, she has not had that recently and Zofran injection 4 mg IV push p.r.n. nausea or vomiting. She is additionally on Protonix, Dilantin 100 mg one p.o. t.i.d. for her seizure disorder. She is cooperative with taking her medications as given to her by the nurses. The patient was asked if she would allow this designer writer to contact her son for further information and she refused. She does not know what pharmacy she goes to, so I am unable to verify her medications prior to coming into the hospital. She mutters and sometimes speaks unintelligibly. She is not able to hold a full conversation at this time. PLAN: According to social services counselor note, caser up progress note dated today, Physical Therapy is recommending that the patient on discharge then go to a subacute rehab when medically cleared. We will continue to follow as it cannot be ruled out if the patient may clear further as her urinary tract infection clears and her mental status may clear as well. Thank you, we will continue to follow. Simi Arenas APN
[2017-10-20] MEDS ORDERED: Potassium Chloride 20 mEq ER Tab PO STA (09:25)
[2017-10-20] MEDS: Enoxaparin 30 mg Syringe SC SCH (10:00)
--- NOTE | 2017-10-20 10:09 | PN ---
DATE: 10/20/2017 SUBJECTIVE: The patient is lying in bed. She received a dose of Ativan last night and is currently sleeping. She is arousable to painful stimuli with opening of her mouth, opening of her eyes. PHYSICAL EXAMINATION: VITAL SIGNS: Reveal temperature of 99.9, blood pressure 143/58, heart rate 88. HEENT: Reveal sclerae to be white. Conjunctivae are pink. NECK: Supple. CHEST: Reveal lungs to be clear. HEART: Reveals regular rate and rhythm. ABDOMEN: Soft, nontender. EXTREMITIES: Show no edema. LABORATORY DATA: Reveal hemoglobin 10.6, white blood cell count 7, potassium of 3.4. IMPRESSION: 1. Right lower quadrant abdominal pain secondary to urinary retention. 2. Change in mental status. RECOMMENDATIONS: Continue supportive treatment including treatment recommended by Psychiatry, awaiting recommendations from Urology for urinary retention. Rashad Bell MD
[2017-10-20 10:55] VITALS: BP 129/66; PULSE 84
--- NOTE | 2017-10-20 17:21 | CP.PCM.DIS ---
<Crys Paulson - Last Filed: 10/20/17 17:17> Provider - Provider Date of Admission: 10/18/17 13:24 Attending physician: Jean-Claude Vazquez MD Primary care physician: Calixto Murdock DO Consults: AMIRA Bell Psych Dr Alvarado Time Spent in preparation of Discharge (in minutes): 120 Diagnosis - Discharge Diagnosis (1) Urinary retention Status: Acute (2) Delirium Status: Acute (3) Abdominal pain Status: Acute (4) Anxiety Status: Acute (5) Frequent falls Status: Acute Hospital Course - Lab Results Lab Results: Most Recent Lab Values WBC 7.0 10^3/ul (4.5-11.0) D 10/20/17 06:30 RBC 3.38 10^6/uL (3.5-6.1) L 10/20/17 06:30 Hgb 10.6 g/dL (12.0-16.0) L 10/20/17 06:30 Hct 32.1 % (36.0-48.0) L 10/20/17 06:30 MCV 95.0 fl (80.0-105.0) 10/20/17 06:30 MCH 31.4 pg (25.0-35.0) 10/20/17 06:30 MCHC 33.0 g/dl (31.0-37.0) 10/20/17 06:30 RDW 13.4 % (11.5-14.5) 10/20/17 06:30 Plt Count 118 10^3/uL (120.0-450.0) L 10/20/17 06:30 MPV 9.7 fl (7.0-11.0) 10/20/17 06:30 Gran % 63.4 % (50.0-68.0) 10/20/17 06:30 Lymph % (Auto) 18.3 % (22.0-35.0) L 10/20/17 06:30 [place] % (Auto) 12.5 % (1.0-6.0) H 10/20/17 06:30 Eos % (Auto) 5.2 % (1.5-5.0) H 10/20/17 06:30 Baso % (Auto) 0.6 % (0.0-3.0) 10/20/17 06:30 Gran # 4.43 (1.4-6.5) 10/20/17 06:30 Lymph # 1.3 (1.2-3.4) 10/20/17 06:30 [place] # 0.9 (0.1-0.6) H 10/20/17 06:30 Eos # 0.4 (0.0-0.7) 10/20/17 06:30 Baso # 0.04 K/mm3 (0.0-2.0) 10/20/17 06:30 PT 11.4 SECONDS (9.4-12.5) 10/17/17 01:00 INR 1.04 (0.93-1.08) 10/17/17 01:00 APTT 19.6 Seconds (25.1-36.5) L 10/17/17 01:00 pCO2 35 mm/Hg (35-45) 10/18/17 17:57 pO2 59.0 mm/Hg (80-100) L 10/18/17 17:57 HCO3 18.0 mmol/L (21-28) L 10/18/17 17:57 ABG pH 7.32 (7.35-7.45) L 10/18/17 17:57 ABG Total CO2 19.1 mmol.L (22-28) L 10/18/17 17:57 ABG O2 Saturation 94.2 % (95-98) L 10/18/17 17:57 ABG O2 Content 13.7 ML/dl (15-23) L 10/18/17 17:57 ABG Base Excess -7.3 mmol/L (-2.0-3.0) L 10/18/17 17:57 ABG Hemoglobin 10.7 g/dL (11.7-17.4) L 10/18/17 17:57 ABG Carboxyhemoglobin 2.5 % (0.5-1.5) H 10/18/17 17:57 POC ABG HHb (Measured) 5.6 % (0-5) H 10/18/17 17:57 ABG Methemoglobin 0.8 % (0.0-3.0) 10/18/17 17:57 ABG O2 Capacity 14.5 mL/dl (16-24) L 10/18/17 17:57 VBG pH 7.32 (7.32-7.43) 10/17/17 07:30 VBG pCO2 48.0 (40-60) 10/17/17 07:30 VBG HCO3 24.7 mmol/l (21-28) 10/17/17 07:30 VBG Total CO2 26.2 mmol.L (22-28) 10/17/17 07:30 VBG O2 Sat (Calc) 91.2 % (40-65) H 10/17/17 07:30 VBG Base Excess -1.8 mmol/L (0.0-2.0) L 10/17/17 07:30 VBG Potassium 3.9 mmol/L (3.6-5.2) 10/17/17 07:30 Hgb O2 Saturation 91.1 % (95.0-98.0) L 10/18/17 17:57 Sodium 143.0 mmol/L (132-148) 10/17/17 07:30 Chloride 112.0 mmol/L (98-107) H 10/17/17 07:30 Glucose 113 mg/dl (65-105) H 10/17/17 07:30 Lactate 0.9 mmol/L (0.7-2.1) 10/17/17 07:30 FiO2 28.0 % 10/18/17 17:57 Sodium 143 mmol/L (132-148) 10/20/17 06:30 Potassium 3.4 mmol/L (3.6-5.0) L 10/20/17 06:30 Chloride 113 mmol/L (98-107) H 10/20/17 06:30 Carbon Dioxide 23 mmol/L (21-33) 10/20/17 06:30 Anion Gap 10 (10-20) 10/20/17 06:30 BUN 12 mg/dL (7-21) 10/20/17 06:30 Creatinine 1.2 mg/dl (0.7-1.2) 10/20/17 06:30 Est GFR ( Amer) 52 10/20/17 06:30 Est GFR (Non-Af Amer) 43 10/20/17 06:30 Random Glucose 90 mg/dL (70-110) 10/20/17 06:30 Calcium 7.9 mg/dL (8.4-10.5) L 10/20/17 06:30 Total Bilirubin 0.5 mg/dL (0.2-1.3) 10/20/17 06:30 AST 25 U/L (14-36) 10/20/17 06:30 ALT 27 U/L (7-56) 10/20/17 06:30 Alkaline Phosphatase 53 U/L (38-126) 10/20/17 06:30 Total Protein 5.4 g/dL (5.8-8.3) L 10/20/17 06:30 Albumin 2.5 g/dL (3.0-4.8) L 10/20/17 06:30 Globulin 2.9 gm/dL 10/20/17 06:30 Albumin/Globulin Ratio 0.9 (1.1-1.8) L 10/20/17 06:30 Lipase 83 U/L (23-300) 10/17/17 02:05 Venous Blood Potassium 3.9 mmol/L (3.6-5.2) 10/17/17 07:30 Urine Color Yellow (YELLOW) 10/17/17 03:30 Urine Appearance Cloudy (CLEAR) 10/17/17 03:30 Urine pH 6.0 (4.7-8.0) 10/17/17 03:30 Ur Specific [place] 1.020 (1.005-1.035) 10/17/17 03:30 Urine Protein 30 mg/dL (<30 mg/dL) H 10/17/17 03:30 Urine Glucose (UA) Negative mg/dL (NEGATIVE) 10/17/17 03:30 Urine Ketones Trace mg/dL (NEGATIVE) H 10/17/17 03:30 Urine Blood Moderate (NEGATIVE) H 10/17/17 03:30 Urine Nitrate Negative (NEGATIVE) 10/17/17 03:30 Urine Bilirubin Negative (NEGATIVE) 10/17/17 03:30 Urine Urobilinogen 0.2 E.U./dL (<1 E.U./dL) 10/17/17 03:30 Ur Leukocyte Esterase Moderate Radha/uL (NEGATIVE) H 10/17/17 03:30 Urine RBC 1 - 3 /hpf (0-2) 10/17/17 03:30 Urine WBC 25 - 30 /hpf (0-6) 10/17/17 03:30 Ur Epithelial Cells 4 - 5 /hpf (0-5) 10/17/17 03:30 Urine Bacteria Mod (NEG) 10/17/17 03:30 - Hospital Course Hospital Course: 82 year old female with a past medical history of diverticulitis- s/p colectomy , hypertension, seizure disorder who presents to the emergency department complaining of right lower abdominal discomfort for the past 1.5 days. She also admits to some nausea, no vomiting or diarrhea. Furthermore, the patient has had frequent falls, and as per her family, she fell this evening hitting her head. Patient notes some mild discomfort right anterior knee but denies any headache, chest pain, shortness of breath, any history of fever or chills or any other complaints at this time. Ct abd pelvis showed no colitis or diverticulitis, bilateral renal lesions (that were previously seen on previous CT). Renal US showed simple cysts bilaterally. Urinalysis was positive for infection and patient was treated Ciprofloxacin 500 mg PO BID. Hip and knee x ray showed no acute fractures, only mild osteoarthritis. On CT abd pelvis, pt was found to have urinary retention, requiring walters catheter for 2 days of admission. It was later discontinued, with patient voiding well (patient is incontinent). Patient also developed agitation and delirium on day 3-4 of admission, owing part to UTI, urinary retention and hospital associated. Pt was seen more alert and oriented, in presence of family members. Physical therapy eval was obtained, and subacute rehab was recommended. However, pt's son refused the rehab, and agreed to bring in a walker and rearranged patient's living quarters at home for patient to move more freely at home. As per embedded case manager, pt will be having visiting nurses and PT sessions at home. Pt was discharged on antibiotics for her UTI. - Date & Time of H&P Date of H&P: 10/17/17 Time of H&P: 06:48 Discharge Exam - Head Exam Head Exam: ATRAUMATIC, NORMOCEPHALIC - Eye Exam Eye Exam: EOMI, PERRL. absent: Conjunctival injection, Scleral icterus Pupil Exam: PERRL - ENT Exam ENT Exam: Mucous Membranes Moist - Respiratory Exam Respiratory Exam: Clear to PA & Lateral. absent: Respiratory Distress - Cardiovascular Exam Cardiovascular Exam: RRR, +S1, +S2. absent: Systolic Murmur - GI/Abdominal Exam GI & Abdominal Exam: Normal Bowel Sounds, Soft. absent: Organomegaly, Rebound, Rigid, Tenderness - Extremities Exam Extremities exam: normal inspection - Back Exam Back exam: NORMAL INSPECTION - Neurological Exam Neurological exam: Alert, Oriented x3 - Psychiatric Exam Psychiatric exam: Normal Mood - Skin Skin Exam: Dry, Intact, Normal Color Discharge Plan - Discharge Medications Prescriptions: Ciprofloxacin [Cipro] 500 mg PO DAILY #5 tab - Follow Up Plan Condition: STABLE Disposition: HOME/ ROUTINE Patient education suggested?: Yes Instructions: Urinary Tract Infection in Women (GEN), Acute Abdominal Pain (DC) , Acute Abdominal Pain (GEN), Acute Delirium (GEN), Acute Urinary Retention in Women (GEN), Anxiety (GEN) Additional Instructions: - Please take Ciprofloxacin for 5 more days. - Please follow up with PMD within 1 week. - You will get home PT services. - Please return if any concerns. Referrals: Calixto Murdock DO [Primary Care Provider] - <Jean-Claude Vazquez - Last Filed: 10/20/17 17:36> Provider - Provider Date of Admission: 10/18/17 13:24 Attending physician: Jean-Claude Vazquez MD Primary care physician: Calixto Murdock DO Hospital Course - Lab Results Lab Results: Most Recent Lab Values WBC 7.0 10^3/ul (4.5-11.0) D 10/20/17 06:30 RBC 3.38 10^6/uL (3.5-6.1) L 10/20/17 06:30 Hgb 10.6 g/dL (12.0-16.0) L 10/20/17 06:30 Hct 32.1 % (36.0-48.0) L 10/20/17 06:30 MCV 95.0 fl (80.0-105.0) 10/20/17 06:30 MCH 31.4 pg (25.0-35.0) 10/20/17 06:30 MCHC 33.0 g/dl (31.0-37.0) 10/20/17 06:30 RDW 13.4 % (11.5-14.5) 10/20/17 06:30 Plt Count 118 10^3/uL (120.0-450.0) L 10/20/17 06:30 MPV 9.7 fl (7.0-11.0) 10/20/17 06:30 Gran % 63.4 % (50.0-68.0) 10/20/17 06:30 Lymph % (Auto) 18.3 % (22.0-35.0) L 10/20/17 06:30 Sauk % (Auto) 12.5 % (1.0-6.0) H 10/20/17 06:30 Eos % (Auto) 5.2 % (1.5-5.0) H 10/20/17 06:30 Baso % (Auto) 0.6 % (0.0-3.0) 10/20/17 06:30 Gran # 4.43 (1.4-6.5) 10/20/17 06:30 Lymph # 1.3 (1.2-3.4) 10/20/17 06:30 Sauk # 0.9 (0.1-0.6) H 10/20/17 06:30 Eos # 0.4 (0.0-0.7) 10/20/17 06:30 Baso # 0.04 K/mm3 (0.0-2.0) 10/20/17 06:30 PT 11.4 SECONDS (9.4-12.5) 10/17/17 01:00 INR 1.04 (0.93-1.08) 10/17/17 01:00 APTT 19.6 Seconds (25.1-36.5) L 10/17/17 01:00 pCO2 35 mm/Hg (35-45) 10/18/17 17:57 pO2 59.0 mm/Hg (80-100) L 10/18/17 17:57 HCO3 18.0 mmol/L (21-28) L 10/18/17 17:57 ABG pH 7.32 (7.35-7.45) L 10/18/17 17:57 ABG Total CO2 19.1 mmol.L (22-28) L 10/18/17 17:57 ABG O2 Saturation 94.2 % (95-98) L 10/18/17 17:57 ABG O2 Content 13.7 ML/dl (15-23) L 10/18/17 17:57 ABG Base Excess -7.3 mmol/L (-2.0-3.0) L 10/18/17 17:57 ABG Hemoglobin 10.7 g/dL (11.7-17.4) L 10/18/17 17:57 ABG Carboxyhemoglobin 2.5 % (0.5-1.5) H 10/18/17 17:57 POC ABG HHb (Measured) 5.6 % (0-5) H 10/18/17 17:57 ABG Methemoglobin 0.8 % (0.0-3.0) 12 17:57 ABG O2 Capacity 14.5 mL/dl (16-24) L 12 17:57 VBG pH 7.32 (7.32-7.43) 10/17/17 07:30 VBG pCO2 48.0 (40-60) 10/17/17 07:30 VBG HCO3 24.7 mmol/l (21-28) 10/17/17 07:30 VBG Total CO2 26.2 mmol.L (22-28) 10/17/17 07:30 VBG O2 Sat (Calc) 91.2 % (40-65) H 10/17/17 07:30 VBG Base Excess -1.8 mmol/L (0.0-2.0) L 10/17/17 07:30 VBG Potassium 3.9 mmol/L (3.6-5.2) 10/17/17 07:30 Hgb O2 Saturation 91.1 % (95.0-98.0) L 10/18/17 17:57 Sodium 143.0 mmol/L (132-148) 10/17/17 07:30 Chloride 112.0 mmol/L (98-107) H 10/17/17 07:30 Glucose 113 mg/dl (65-105) H 10/17/17 07:30 Lactate 0.9 mmol/L (0.7-2.1) 10/17/17 07:30 FiO2 28.0 % 10/18/17 17:57 Sodium 143 mmol/L (132-148) 10/20/17 06:30 Potassium 3.4 mmol/L (3.6-5.0) L 10/20/17 06:30 Chloride 113 mmol/L (98-107) H 10/20/17 06:30 Carbon Dioxide 23 mmol/L (21-33) 10/20/17 06:30 Anion Gap 10 (10-20) 10/20/17 06:30 BUN 12 mg/dL (7-21) 10/20/17 06:30 Creatinine 1.2 mg/dl (0.7-1.2) 10/20/17 06:30 Est GFR ( Amer) 52 10/20/17 06:30 Est GFR (Non-Af Amer) 43 10/20/17 06:30 Random Glucose 90 mg/dL (70-110) 10/20/17 06:30 Calcium 7.9 mg/dL (8.4-10.5) L 10/20/17 06:30 Total Bilirubin 0.5 mg/dL (0.2-1.3) 10/20/17 06:30 AST 25 U/L (14-36) 10/20/17 06:30 ALT 27 U/L (7-56) 10/20/17 06:30 Alkaline Phosphatase 53 U/L (38-126) 10/20/17 06:30 Total Protein 5.4 g/dL (5.8-8.3) L 10/20/17 06:30 Albumin 2.5 g/dL (3.0-4.8) L 10/20/17 06:30 Globulin 2.9 gm/dL 10/20/17 06:30 Albumin/Globulin Ratio 0.9 (1.1-1.8) L 10/20/17 06:30 Lipase 83 U/L (23-300) 10/17/17 02:05 Venous Blood Potassium 3.9 mmol/L (3.6-5.2) 10/17/17 07:30 Urine Color Yellow (YELLOW) 10/17/17 03:30 Urine Appearance Cloudy (CLEAR) 10/17/17 03:30 Urine pH 6.0 (4.7-8.0) 10/17/17 03:30 Ur Specific [place] 1.020 (1.005-1.035) 10/17/17 03:30 Urine Protein 30 mg/dL (<30 mg/dL) H 10/17/17 03:30 Urine Glucose (UA) Negative mg/dL (NEGATIVE) 10/17/17 03:30 Urine Ketones Trace mg/dL (NEGATIVE) H 10/17/17 03:30 Urine Blood Moderate (NEGATIVE) H 10/17/17 03:30 Urine Nitrate Negative (NEGATIVE) 10/17/17 03:30 Urine Bilirubin Negative (NEGATIVE) 10/17/17 03:30 Urine Urobilinogen 0.2 E.U./dL (<1 E.U./dL) 10/17/17 03:30 Ur Leukocyte Esterase Moderate Radha/uL (NEGATIVE) H 10/17/17 03:30 Urine RBC 1 - 3 /hpf (0-2) 10/17/17 03:30 Urine WBC 25 - 30 /hpf (0-6) 10/17/17 03:30 Ur Epithelial Cells 4 - 5 /hpf (0-5) 10/17/17 03:30 Urine Bacteria Mod (NEG) 10/17/17 03:30 Attending/Attestation - Attestation I have personally seen and examined this patient.: Yes I have fully participated in the care of the patient.: Yes I have reviewed all pertinent clinical information, including history, physical exam and plan: Yes Notes (Text): 10/20/17 17:34 82 year old female with past medical history of diverticulitis, anxiety and frequent falls who presented with complaint of right lower abdominal pain likely secondary to urinary retention. This improved after walters insertion which was later removed. She was treated with antibiotics for UTI. She also complained of frequent falls. Imaging studies were negative for fractures. She was seen by PT who initially recommended [facility]. However patient and son refused stating they want to be discharged home with services. This was arranged by C[facility]. Patient is discharged home today with home services. Counselled on fall precautions. Follow up with pmd. Jean-Claude Vazquez MD Hospitalist.
--- NOTE | 2017-10-20 21:37 | PN ---
DATE: SUBJECTIVE: The patient is an 82-year-old female. The patient does not have psychiatric history. The patient was admitted on the medical side for evaluation of abdominal pain. Psych consult was called for evaluation of agitated and restless behavior which could be related to urinary tract infection as well as urinary retention. The patient was seen initially yesterday. Please see initial consultation note for more detailed information. The patient was followed up today. Overnight, no acute event. The patient did not have any agitation, did not require Seroquel, slept well. At the same time, the patient appears to be confused but less to compare with yesterday. The patient knows that she is in [facility] and knows what is her name. VITAL SIGNS: Reviewed. Notes reviewed from the Physical Therapy. The patient was recommended to have subacute rehab, but the patient's family declined that offer, wants to take the patient back home. Medications reviewed. Labs reviewed. MENTAL STATUS EXAMINATION: The patient appears to be sleepy, easily arousable, intermittent eye contact. Speech was underproductive. Mood described, "I am better." Affect was constricted. Thought process concrete. Thought content, the patient denied thoughts of harming herself or others. Denied intent or plan. Insight and judgment seems to be improving. Impulses are better controlled. The patient also denied hearing voices or seeing things. IMPRESSION: Most likely, the patient was in delirium state which is slowly improving. PLAN: The patient might benefit from subacute rehab, but family refused that option. The patient will be discharged today as per medical team. Delirium is clearing. The patient posed no imminent danger to self or others, should not be continued on Seroquel or Ativan. This brief writer will sign off. Should you have any questions, give me a call back. Thank you so much for letting me participate in care of your patient. Jenny Moreno MD
[2017-10-20] MEDS ORDERED: Pantoprazole 40 mg EC Tab PO SCH (22:00)
--- NOTE | 2017-10-21 08:44 | PN ---
DATE: 10/20/2017 She is being seen today for a followup consultation and the date is 10/20/2017. PRESENTATION: The patient is an 82-year-old female, seen at bedside. Labs were reviewed. Nurses' notes were reviewed and the patient was interviewed. The patient is somewhat lethargic, unintelligible in conversation. Makes eye contact and sort of mumbles. One-to-one indicates that she had a quiet night and she continues by the bedside for the patient's safety. In review of social work notes, the patient is no longer going to subacute care facility. Her son was in last night and indicated he wanted to have her cared for at home. He indicates that he would like to have physical therapy in the home and would like to have her discharged today. Her followup will be to see medical nurse practitioner once a month from her primary doctor's office. She also had services to [facility], so this is now the plan for discharge. PHYSICAL EXAMINATION: VITAL SIGNS: The patient's vital signs include 99.9 degrees Fahrenheit rectal temperature and a blood pressure of 143/58. She does not appear to be in any distress and is lying comfortably in the bed. DIAGNOSES: Diverticulitis, hypertension, seizure disorder, urinary tract infection. PLAN: At this time, the patient's infection seems to be resolving. She does not seem to be any clear today mentally as she was yesterday. The plan is for her to be discharged home. Her son wants her home with services. We will continue to follow while in hospital. Simi Arenas APN
== END 2017-10-20 16:29 | disposition home health service (06) | DRG 690 ==
LOC: ED 00:22 → ERH 05:39 → 5RNO 06:58 → OBSVTOIN 10-18 13:24
PROVIDERS: ADMIT Internal Medicine; ATTEND Internal Medicine
DX: N39.0 Urinary tract infection, site not specified (principal); R33.9 Retention of urine, unspecified; G40.909 Epilepsy, unspecified, not intractable, without status epilepticus; I11.9 Hypertensive heart disease without heart failure; N28.1 Cyst of kidney, acquired; F41.9 Anxiety disorder, unspecified; R29.6 Repeated falls; R41.0 Disorientation, unspecified; M16.0 Bilateral primary osteoarthritis of hip; I25.2 Old myocardial infarction; Z91.81 History of falling; Z90.49 Acquired absence of other specified parts of digestive tract; Z87.891 Personal history of nicotine dependence

== ENCOUNTER 2018-03-16 18:05 | Inpatient (IN) | payer MEDICAID, MEDICARE ==
[2018-03-16 18:15] VITALS: BMI 24.7
--- NOTE | 2018-03-16 18:19 | ED PDOC ---
Arrival/HPI - General Historian: Patient, EMS - General Chief Complaint: GI Problem Time Seen by Provider: 03/16/18 18:06 - History of Present Illness Narrative History of Present Illness (Text): 03/16/18 18:15 82yo female with PMHx of diverticulitis, hypertension who was bib EMS with complaint of nausea, vomiting , back pain, chills, subjective fever x 2days. States she can't keep anything down. Denies abdominal pain, chest pain, ripping/ tearing upper back pain, SOB, dysuria, urinary symptoms, any other complaint. (Yoel Resendez A) Past Medical History - Provider Review Nursing Documentation Reviewed: Yes - Infectious Disease Hx of Infectious Diseases: None - Tetanus Immunization Tetanus Immunization: Unknown - Cardiac Hx Cardiac Disorders: Yes Hx Hypertension: Yes - Pulmonary Hx Respiratory Disorders: No Hx Asthma: No Hx Bronchitis: No Hx Chronic Obstructive Pulmonary Disease (COPD): No Hx Emphysema: No Hx Pneumonia: No Hx Respiratory Aspiration: No Hx Respiratory Tract Infection: Yes Hx Sleep Apnea: No Hx Tuberculosis: No - Neurological Hx Neurological Disorder: Yes Hx Alzheimer's Disease: No HX Cerebrovascular Accident: No Hx Dementia: No Hx Dizziness: Yes Hx Meningitis: No Hx Migraine: No Hx Parkinson's Disease: No Hx Seizures: Yes Hx Transient Ischemic Attacks (TIA): No - HEENT Hx HEENT Disorder: Yes Hx Blind: No Hx Cataracts: No Hx Deafness: Yes Hx Difficulty Chewing: No Hx Epistaxis: No Hx Glaucoma: No Hx Macular Degeneration: No - Renal Hx Renal Disorder: No Hx Dialysis: No Hx Kidney Stones: No Hx Neurogenic Bladder: No Hx Pyelonephritis: No Hx Renal Cancer: No Hx Renal Failure: No - Endocrine/Metabolic Hx Endocrine Disorders: No Hx Adrenal Cancer: No Hx Diabetes Insipidus: No Hx Diabetes Mellitus Type 1: No Hx Diabetes Mellitus Type 2: No Hx Hyperthyroidism: No Hx Hypothyroidism: No Hx Systemic Lupus Erythematosus: No - Hematological/Oncological Hx Blood Disorders: No Hx AIDS: No Hx Anemia: No Hx Cancer: No Hx Chemotherapy: No Hx Cirrhosis: No Hx Hemophilia: No Hx Hepatitis A: No Hx Hepatitis B: No Hx Hepatitis C: No Hx Metastasis: No Hx Shingles: No Hx Sickle Cell Disease: No Hx Unexplained Bleeding: No - Integumentary Hx Dermatological Disorder: No Hx Basal Cell Carcinoma: No Hx Eczema: No Hx Melanoma: No Hx Psoriasis: No Hx Squamous Cell Carcinoma: No - Musculoskeletal/Rheumatological Hx Arthritis: Yes - Gastrointestinal Hx Gastrointestinal Disorders: Yes Hx Colostomy: No Hx Crohn's Disease: No Hx Diverticulitis: Yes Hx Gall Bladder Disease: Yes Hx Gastroesophageal Reflux: No Hx Gastrointestinal Ulcer: No Hx Ileostomy: No Hx Liver Failure: No Hx Pancreatitis: No HX Swallowing Problems: No - Genitourinary/Gynecological Hx Genitourinary Disorders: No Hx Hematuria: No Hx Incontinence: No Hx Prostate Problems: No Hx Sexually Transmitted Diseases: No Hx Urinary Tract Infection: Yes - Psychiatric Hx Psychophysiologic Disorder: Yes Hx Anxiety: Yes Hx Bipolar Disorder: No Hx Depression: No Hx Emotional Abuse: No Hx Hallucinations: No Hx Panic Disorder: No Hx Post Traumatic Stress Disorder: No Hx Psychosis: No Hx Physical Abuse: No Hx Schizophrenia: No Hx Sexual Abuse: No Hx Substance Use: No - Surgical History Hx Amputation: No Hx Appendectomy: Yes Hx Cardiac Catheterization: No Hx Cholecystectomy: Yes Hx Coronary Stent: No Hx Gastric Bypass Surgery: No Hx Hysterectomy: No Hx Joint Replacement: No Hx Kidney Transplant: No Hx Liver Transplant: No Hx Mastectomy: No Hx Musculoskeletal Surgery: No Hx Open Heart Surgery: No Hx Orthopedic Surgery: No Hx Splenectomy: No Hx Valve Replacement: No - Anesthesia Hx Anesthesia Reactions: No Hx Malignant Hyperthermia: No - Suicidal Assessment Feels Threatened In Home Enviroment: No Family/Social History - Physician Review Nursing Documentation Reviewed: Yes Family/Social History: Unknown Family HX Smoking Status: Former Smoker Hx Alcohol Use: No Hx Substance Use: No Hx Substance Use Treatment: Yes Allergies/Home Meds Allergies/Adverse Reactions: Allergies amoxicillin Allergy (Verified 10/17/17 02:07) RASH Penicillins Allergy (Verified 10/17/17 02:07) RASH Home Medications: Home Meds Medication Instructions Recorded Confirmed Carvedilol [Coreg] 40 mg PO DAILY 07/21/17 10/17/17 Lisinopril [Zestril] 2.5 mg PO DAILY 07/21/17 10/17/17 Phenytoin, Extended [Dilantin] 100 mg PO TID 07/21/17 10/17/17 oxyCODONE [oxyCODONE Immediate 15 mg PO PRN PRN 07/21/17 10/17/17 Release Tab] Review of Systems - Physician Review All systems were reviewed & negative as marked: Yes - Review of Systems Constitutional: Normal Eyes: Normal ENT: Normal Respiratory: Normal Cardiovascular: Normal Gastrointestinal: Nausea, Vomiting. absent: Abdominal Pain, Constipation, Diarrhea, Hematochezia, Hematemesis Genitourinary Female: Normal Musculoskeletal: Back Pain Skin: Normal Neurological: Normal Endocrine: Normal Hemo/Lymphatic: Normal Psychiatric: Normal Physical Exam Vital Signs Reviewed: Yes Temperature: Febrile Blood Pressure: Normal Pulse: Tachycardic Respiratory Rate: Normal Appearance: Positive for: Well-Appearing, Non-Toxic, Comfortable Pain Distress: None Mental Status: Positive for: Alert and Oriented X 3 - Systems Exam Head: Present: Atraumatic, Normocephalic Pupils: Present: PERRL Extroacular Muscles: Present: EOMI Conjunctiva: Present: Normal Mouth: Present: Moist Mucous Membranes Neck: Present: Normal Range of Motion Respiratory/Chest: Present: Clear to Auscultation, Good Air Exchange. No: Respiratory Distress, Accessory Muscle Use Cardiovascular: Present: Regular Rate and Rhythm, Normal S1, S2. No: Murmurs Abdomen: Present: Normal Bowel Sounds, Other (Soft). No: Tenderness, Distention , Peritoneal Signs, Rebound, Guarding, McBurney's Point Tender, Rovsing's Sign Present Back: Present: CVA Tenderness (B/L) Upper Extremity: Present: Normal Inspection. No: Cyanosis, Edema Lower Extremity: Present: Normal Inspection. No: Edema Neurological: Present: GCS=15, CN II-XII Intact, Speech Normal Skin: Present: Warm, Dry, Normal Color. No: Rashes Psychiatric: Present: Alert, Oriented x 3, Normal Insight, Normal Concentration Vital Signs Temp Pulse Resp BP Pulse Ox 03/16/18 19:05 102.6 F H 03/16/18 18:58 101.1 F H 03/16/18 18:11 101.5 F H 109 H 18 127/76 95 Medical Decision Making ED Course and Treatment: 03/16/18 20:07 PT present for N/V/, back pain x few days Labs ordered I L NS, Zofran, Tylenol, ordered EKG CXR Will reassess EKG NSR @99bpm NSTEMI Elevated LFT, Alk phos and T. bili was noted. Likely secondary to choleangitis Vs choleangio carcinoma. Hepatitis panel and Gall bladder/hepatic US was ordered UA still pending Flagyl and Cefepime ordered to cover broad spectrum intra abdominal infection ( cholangitis/UTI) Pt will be admitted for further treatment and evaluation Case was DW Dr. Sarah and she accepted pt for admission. she requested abdominal CT with contrast. deburr technician Unable to do abdominal/pelvic CT with contrast secondary to GFR of 39 (Yoel Resendez) 03/16/18 21:39 "U/S IMPRESSION: 1. The liver is increased in echogenicity, most commonly due to fatty infiltration, but other chronic liver diseases may have a similar appearance. 2. The common bile duct is dilated. This can be further evaluated with MRCP. 3. At the lower pole of the right kidney, there is a thick walled complex cyst or cystic lesion measuring 3.1 x 2.6 x 2.5 cm. A few additional smaller right renal cysts are visualized. Follow-up ultrasonography and possible MRI with/without contrast are recommended. 4. Additional findings described above." 03/16/18 21:48 CT shows "1. There is biliary dilatation. A few tiny hyperdense foci are identified at the hepatic hilum either within or adjacent to the common hepatic duct. These foci may be postoperative or due to tiny calculi. 2. There is a large collection of gas and fluid with an air fluid level again visualized adjacent to the duodenum. This likely represents a duodenal diverticulum. 3. There is mild fecal distention of the sigmoid colon and rectum. Sigmoid diverticulosis is identified. 4. Multiple hypodense cyst or cystic lesions are identified involving the kidneys, a few which are indeterminate. Follow-up ultrasonography is recommended. 5. The infrarenal abdominal aorta is again ectatic measuring 2.9 cm in diameter. 6. There is gastric wall thickening, suggestive of incomplete distention or gastritis. 7. Within the right lower lobe of the lung on series 5 image 27, there is a stable 6 mm nodule. 8. There is a moderate-sized hiatal hernia. 9. Additional CT findings described above." (Sonia Kincaid) - Lab Interpretations Lab Results: 03/16/18 18:58 03/16/18 18:58 Lab Results 03/16/18 18:58: Sodium 146, Chloride 110 H, Potassium 4.2, Carbon Dioxide 22, Anion Gap 18, BUN 18, Creatinine 1.3 H, Est GFR ( Amer) 47, Est GFR (Non- Af Amer) 39, Random Glucose 153 H, Calcium 8.8, Phosphorus 2.4 L, Magnesium 1.8 , Total Bilirubin 2.9 H, AST 397 H D, ALT 237 H, Alkaline Phosphatase 228 H D, Troponin I 0.02, Total Protein 7.5, Albumin 3.9, Globulin 3.6, Albumin/Globulin Ratio 1.1, Lipase 360 H 03/16/18 18:58: pO2 32, VBG pH 7.38, VBG pCO2 41.0, VBG HCO3 24.3, VBG Total CO2 25.6, VBG O2 Sat (Calc) 72.3 H, VBG Base Excess -0.8 L, VBG Potassium 4.2, Sodium 140.0, Chloride 108.0 H, Glucose 161 H, Lactate 1.7, FiO2 21.0, Venous Blood Potassium 4.2 03/16/18 18:58: PT 11.4, INR 1.00, APTT 20.4 L 03/16/18 18:58: WBC 9.2 D, RBC 4.12, Hgb 12.8 D, Hct 38.1, MCV 92.5, MCH 31.1 , MCHC 33.6, RDW 13.3, Plt Count 125, MPV 9.6, Gran % 84.0 H, Lymph % (Auto) 6.0 L, [place] % (Auto) 7.8 H, Eos % (Auto) 2.1, Baso % (Auto) 0.1, Gran # 7.74 H, Lymph # (Auto) 0.6 L, [place] # (Auto) 0.7 H, Eos # (Auto) 0.2, Baso # (Auto) 0.01 - RAD Interpretation Radiology Orders: 03/16/18 18:13 CHEST PORTABLE [RAD] Stat 03/16/18 19:30 HEPATIC [US] Stat - Medication Orders Current Medication Orders: Acetaminophen (Tylenol 325mg Tab) 650 mg PO Q6H PRN PRN Reason: Fever >100.4 F Sodium Chloride (Sodium Chloride 0.9%) 1,000 mls @ 250 mls/hr IV .Q4H ONE Stop: 03/16/18 22:22 Last Admin: 03/16/18 18:57 Dose: 250 mls/hr eMAR Start Stop Document 03/16/18 18:57 SS (Rec: 03/16/18 18:58 SS [id number]) Intravenous Solution Start Date 03/16/18 Start Time 18:58 Dextrose/Sodium Chloride (Dextrose 5%/0.45% Ns 1000 Ml) 1,000 mls @ 100 mls/hr IV .Q10H OMID Last Admin: 03/16/18 21:01 Dose: 100 mls/hr eMAR Start Stop Document 03/16/18 21:01 RG (Rec: 03/16/18 21:40 RG [id number]) Intravenous Solution Start Date 03/16/18 Start Time 21:01 Metronidazole (Flagyl) 500 mg in 100 mls @ 100 mls/hr IVPB Q8 OMID PRN Reason: Protocol Famotidine (Pepcid 20mg/50ml Premix) 20 mg in 50 mls @ 100 mls/hr IVPB DAILY OMID Ceftriaxone Sodium (Rocephin 1 Gram Ivpb) 1 gm in 100 mls @ 100 mls/hr IVPB DAILY OMID PRN Reason: Protocol Ondansetron HCl (Zofran Inj) 4 mg IVP Q6H PRN PRN Reason: Nausea/Vomiting Discontinued Medications Acetaminophen (Tylenol 650 Mg Supp) 650 mg RC STAT STA Stop: 03/16/18 18:24 Last Admin: 03/16/18 18:58 Dose: 650 mg MAR Pain/Vitals Document 03/16/18 18:58 SS (Rec: 03/16/18 18:58 SS [id number]) Vitals Temperature (97.6 F-99.6 F) 101.1 F Temperature Source Oral Metronidazole (Flagyl) 500 mg in 100 mls @ 100 mls/hr IVPB STAT STA PRN Reason: Protocol Stop: 03/16/18 20:37 Last Admin: 03/16/18 21:14 Dose: 100 mls/hr eMAR Start Stop Document 03/16/18 21:14 RG (Rec: 03/16/18 21:14 RG [id number]) Intravenous Solution Start Date 03/16/18 Start Time 21:14 Cefepime HCl (Maxipime 2gm) 2 gm in 100 mls @ 100 mls/hr IVPB STAT STA PRN Reason: Protocol Stop: 03/16/18 20:38 Last Admin: 03/16/18 21:15 Dose: 100 mls/hr eMAR Start Stop Document 03/16/18 21:15 (Rec: 03/16/18 21:21 [id number]) Intravenous Solution Start Date 03/16/18 Start Time 21:21 Ondansetron HCl (Zofran Inj) 4 mg IVP STAT STA Stop: 03/16/18 19:55 Last Admin: 03/16/18 21:00 Dose: 4 mg IVP Administration Document 03/16/18 21:00 (Rec: 03/16/18 21:39 [id number]) Charges for Administration # of IVP Administrations 1 Disposition/Present on Arrival - Present on Arrival Any Indicators Present on Arrival: No History of DVT/PE: No History of Uncontrolled Diabetes: No Urinary Catheter: No History of Decub. Ulcer: No History Surgical Site Infection Following: None - Disposition Have Diagnosis and Disposition been Completed?: Yes Disposition Time: 20:00 Patient Plan: Admission - Disposition Diagnosis: Abdominal pain, UTI (urinary tract infection), Abnormal LFTs, Fever Disposition: HOSPITALIZED Patient Problems: Current Active Problems Problem Status Onset Abdominal pain Acute UTI (urinary tract infection) Acute Abnormal LFTs Acute Fever Acute Condition: FAIR
[2018-03-16] MEDS ORDERED: Sodium Chloride 0.9% 1,000 ML IV ONE (18:23)
--- NOTE | 2018-03-16 18:54 | RAD ---
HISTORY: Sepsis Patient COMPARISON: 10/17/2017. FINDINGS: LUNGS: No active pulmonary disease. PLEURA: No significant pleural effusion identified, no pneumothorax apparent. CARDIOVASCULAR: No radiographic findings to suggest acute or significant cardiovascular disease. GoNormal. OSSEOUS STRUCTURES: No significant abnormalities. VISUALIZED UPPER ABDOMEN: Normal. OTHER FINDINGS: None. IMPRESSION: No active disease. No significant interval change compared to the prior examination(s).
[2018-03-16 19:04] LABS: VENOUS BLOOD GAS BASE EXCESS -0.8 mmol/L (0.0-2.0); VENOUS BLOOD GAS PO2 32 mm/Hg (30-55); VENOUS BLOOD PH 7.38 (7.32-7.43)
[2018-03-16 19:09] LABS: BASO # 0.01 K/mm3 (0.0-2.0); BASO % 0.1 % (0.0-3.0); EOS # 0.2 (0.0-0.7); EOS % 2.1 % (1.5-5.0); GRAN # 7.74 (1.4-6.5); HEMOGLOBIN 12.8 g/dL (12.0-16.0); LYMPH # 0.6 (1.2-3.4); MEAN CELL VOLUME 92.5 fl (80.0-105.0); MEAN CORPUSCULAR HEMOGLOBIN 31.1 pg (25.0-35.0); MEAN CORPUSCULAR HGB CONC 33.6 g/dl (31.0-37.0); MEAN PLATELET VOLUME 9.6 fl (7.0-11.0); MONO # 0.7 (0.1-0.6); MONO % 7.8 % (1.0-6.0); RBC 4.12 10^6/uL (3.5-6.1); RED CELL DISTRIBUTION WIDTH 13.3 % (11.5-14.5); WHITE BLOOD COUNT 9.2 10^3/ul (4.5-11.0)
[2018-03-16 19:15] LABS: ALB/GLOB RATIO 1.1 (1.1-1.8); ALBUMIN 3.9 g/dL (3.0-4.8); CALCIUM 8.8 mg/dL (8.4-10.5)
[2018-03-16 19:22] LABS: PARTIAL THROMBOPLASTIN TIME 20.4 Seconds (25.1-36.5); PROTHROMBIN TIME 11.4 SECONDS (9.4-12.5)
[2018-03-16 19:25] LABS: TROPONIN I 0.02 ng/mL
[2018-03-16] MEDS ORDERED: metroNIDAZOLE IV 500 mg/100 ml 500 MG/100 ML BAG IVPB STA (19:38)
[2018-03-16] MEDS ORDERED: Cefepime IV 2 gm in NS 2 GM/100 ML BAG IVPB STA (19:39)
[2018-03-16] MEDS: Dextrose 5%/0.45% NS 1,000 ML IV SCH (21:01)
[2018-03-16 21:29] LABS: URINE BILIRUBIN MODERATE (NEGATIVE); URINE BLOOD LARGE (NEGATIVE); URINE GLUCOSE (UA) NEGATIVE (NEGATIVE); URINE LEUKOCYTE ESTERASE MODERATE Leu/uL (NEGATIVE); URINE PROTEIN 30 mg/dL (<30 mg/dL)
[2018-03-16 21:31] LABS: URINE APPEARANCE SLIGHT-CLOUDY (CLEAR); URINE COLOR YELLOW (YELLOW)
--- NOTE | 2018-03-16 21:32 | US ---
EXAM: US Abdomen Limited, Right Upper Quadrant EXAM DATE/TIME: 03/16/2018 7:30 PM CLINICAL HISTORY: The patient age is 82 years old and is female; Abnormal findings; Abnormal lab test; Elevated liver enzymes; Additional info: Elevated lft Facility exam id and description: Us hepatic hepatic TECHNIQUE: Real-time ultrasound of the right upper quadrant with image documentation. COMPARISON: US - RENAL SPLEEN 2017-10-17 10:40 FINDINGS: Liver: The liver is increased in echogenicity, most commonly due to fatty infiltration, but other chronic liver diseases may have a similar appearance. The liver measures 14.2 x 1.1 cm. There is mild lobulation of the hepatic contour. Gallbladder: The gallbladder is absent. Common bile duct: The common bile duct measures 1.2 cm in diameter, which is dilated. Pancreas: Incompletely visualized due to bowel gas. Right kidney: At the lower pole of the right kidney, there is a thick walled complex cyst or cystic lesion measuring 3.1 x 2.6 x 2.5 cm. A few additional smaller right renal cysts are visualized. The right kidney measures 10.1 x 4.5 cm. There is no hydronephrosis of the right kidney. No shadowing stones. Aorta: There is a limited evaluation of the abdominal aorta. The visualized segment is patent and normal in caliber. Inferior vena cava: The visualized segment of the IVC is patent. IMPRESSION: 1. The liver is increased in echogenicity, most commonly due to fatty infiltration, but other chronic liver diseases may have a similar appearance. 2. The common bile duct is dilated. This can be further evaluated with MRCP. 3. At the lower pole of the right kidney, there is a thick walled complex cyst or cystic lesion measuring 3.1 x 2.6 x 2.5 cm. A few additional smaller right renal cysts are visualized. Follow-up ultrasonography and possible MRI with/without contrast are recommended. 4. Additional findings described above.
--- NOTE | 2018-03-16 21:45 | CT ---
EXAM: CT Abdomen and Pelvis Without Intravenous Contrast EXAM DATE/TIME: 03/16/2018 8:32 PM CLINICAL HISTORY: The patient age is 82 years old and is female; Signs and symptoms; Other: Elevated lfts, dysuria; Prior surgery; Surgery type: Appendectomy - cholecystectomy Facility exam id and description: Ct abdpelscon abd pelvis w/o po or iv cont TECHNIQUE: Axial computed tomography images of the abdomen and pelvis without intravenous contrast. All CT scans at this facility use one or more dose reduction techniques, viz.: automated exposure control; ma/kV adjustment per patient size (including targeted exams where dose is matched to indication; i.e. head); or iterative reconstruction technique. Coronal and sagittal reformatted images were created and reviewed. COMPARISON: CT - ABD PELVIS W/O PO OR IV CONT 2017-10-17 02:58 FINDINGS: Artifacts: Motion artifact limits this study. Lung bases: Within the right lower lobe of the lung on series 5 image 27, there is a stable 6 mm nodule. Dependent interstitial and airspace disease identified at the lung bases. This is suggestive of atelectatic change and similar to the prior study. Mediastinum: There is a moderate-sized hiatal hernia. ABDOMEN: Liver: No mass. Gallbladder and bile ducts: There is dilatation of the common bile duct measure approximately 1.3 cm in diameter. A few tiny hyperdense foci are identified at the hepatic hilum either within or adjacent to the common hepatic duct. These foci may be postoperative or due to tiny calculi. The gallbladder is not visualized/absent. Pancreas: There is atrophy of the body of the pancreas. Spleen: No splenomegaly. Adrenals: No mass. Kidneys and ureters: Multiple hypodense cyst or cystic lesions are identified involving the kidneys, a few which are indeterminate. At the midpole the left kidney, there is a complex cyst or cystic lesion measuring 3.4 x 3.1 cm, with peripheral calcification. There is no progression of this lesion compared to the prior study. No hydronephrosis. Stomach and bowel: There is a large collection of gas and fluid with an air fluid level adjacent to the duodenum. This measures 6.3 x 5.6 x 3.7 cm. A similar finding is seen on the prior study. This likely represents a duodenal diverticulum. There is mild fecal distention of the sigmoid colon and rectum. Sigmoid diverticulosis is identified, without acute pericolonic stranding. There is gastric wall thickening, suggestive of incomplete distention or gastritis. A partial colectomy is identified, with only the sigmoid colon remaining. PELVIS: Appendix: The appendix is not visualized. Bladder: No stones. Reproductive: Unremarkable as visualized. ABDOMEN and PELVIS: Intraperitoneal space: No free air. Bones/joints: Hypertrophic degenerative changes are noted within the spine. The L3 vertebral body. Retrolisthesis well to L4, but this could be contributed by motion artifact. There is mild anterolisthesis of L4 on L5. Vasculature: The infrarenal abdominal aorta is again ectatic measuring 2.9 cm in diameter. Atherosclerotic changes are identified. Lymph nodes: No enlarged lymph nodes. IMPRESSION: 1. There is biliary dilatation. A few tiny hyperdense foci are identified at the hepatic hilum either within or adjacent to the common hepatic duct. These foci may be postoperative or due to tiny calculi. 2. There is a large collection of gas and fluid with an air fluid level again visualized adjacent to the duodenum. This likely represents a duodenal diverticulum. 3. There is mild fecal distention of the sigmoid colon and rectum. Sigmoid diverticulosis is identified. 4. Multiple hypodense cyst or cystic lesions are identified involving the kidneys, a few which are indeterminate. Follow-up ultrasonography is recommended. 5. The infrarenal abdominal aorta is again ectatic measuring 2.9 cm in diameter. 6. There is gastric wall thickening, suggestive of incomplete distention or gastritis. 7. Within the right lower lobe of the lung on series 5 image 27, there is a stable 6 mm nodule. 8. There is a moderate-sized hiatal hernia. 9. Additional CT findings described above.
[2018-03-16 21:46] LABS: URINE AMORPHOUS SEDIMENT SMALL; URINE EPITHELIAL CELLS MANY /hpf (0-5); URINE RBC 25 - 30 /hpf (0-2)
[2018-03-17] MEDS: metroNIDAZOLE IV 500 mg/100 ml 500 MG/100 ML BAG IVPB SCH ×3 (05:06→22:12)
[2018-03-17 06:54] LABS: MEAN CELL VOLUME 93.3 fl (80.0-105.0); MEAN CORPUSCULAR HEMOGLOBIN 30.7 pg (25.0-35.0); MEAN CORPUSCULAR HGB CONC 32.9 g/dl (31.0-37.0); MEAN PLATELET VOLUME 9.6 fl (7.0-11.0); RBC 3.58 10^6/uL (3.5-6.1); RED CELL DISTRIBUTION WIDTH 13.6 % (11.5-14.5); WHITE BLOOD COUNT 8.1 10^3/ul (4.5-11.0)
[2018-03-17 07:36] LABS: ALBUMIN 3.1 g/dL (3.0-4.8); CALCIUM 8.3 mg/dL (8.4-10.5)
--- NOTE | 2018-03-17 10:44 | CP.PCM.CON ---
<Seema Grayson - Last Filed: 03/17/18 14:46> History of Present Illness - History of Present Illness History of Present Illness: PGY- 2 GI consult note for Dr. Soria's service 82yo female with PMHx of diverticulitis, hypertension, seizure who was bib EMS with complaint of nausea, vomiting, back pain, chills, subjective fever for 2days. She states that for the last 2 days she was vomiting and has been unable to eat. She also reports abd pain. She denies diarrhea or constipation as well as any bleeding. She also reports dysuria for the past 2 days.Denies chest pain , ripping/tearing upper back pain, SOB, any other complaint. Patient states that she has been taking 2 tyenol daily for the past few months due to pain from her arthritis. Patient does not recall last colonscopy or endoscopy. PMH: diverticulitis, hypertension, seizure PSH: colectomy due to diverticulitis, cholecystectomy Allergies: Amoxicillin, Penicillin Social: Lives with her son, former smoker, denies alcohol use or illicit drug use. brit hard of hearing. Review of Systems - Review of Systems All systems: reviewed and no additional remarkable complaints except Past Patient History - Infectious Disease Hx of Infectious Diseases: None - Tetanus Immunizations Tetanus Immunization: Unknown - Past Social History Smoking Status: Former Smoker - CARDIAC Hx Hypertension: Yes Other/Comment: CAD, PR - PULMONARY Hx Respiratory Disorders: No Hx Asthma: No Hx Bronchitis: No Hx Chronic Obstructive Pulmonary Disease (COPD): No Hx Emphysema: No Hx Pneumonia: No Hx Respiratory Aspiration: No Hx Respiratory Tract Infection: Yes Hx Sleep Apnea: No Hx Tuberculosis: No - NEUROLOGICAL Hx Seizures: Yes - HEENT Hx Cataracts: (YAVAPAI-APACHE) - RENAL Hx Chronic Kidney Disease: No Hx Dialysis: No Hx Kidney Stones: No Hx Neurogenic Bladder: No Hx Pyelonephritis: No Hx Renal (Kidney) Cancer: No Hx Renal Failure: No - ENDOCRINE/METABOLIC Hx Endocrine Disorders: No Hx Adrenal Cancer: No Hx Diabetes Insipidus: No Hx Diabetes Mellitus Type 1: No Hx Diabetes Mellitus Type 2: No Hx Hyperthyroidism: No Hx Hypothyroidism: No Hx Systemic Lupus Erythematosus: No - HEMATOLOGICAL/ONCOLOGICAL Hx Blood Disorders: No Hx AIDS: No Hx Anemia: No Hx Cancer: No Hx Chemotherapy: No Hx Cirrhosis: No Hx Hemophilia: No Hx Hepatitis A: No Hx Hepatitis B: No Hx Hepatitis C: No Hx Metastesis: No Hx Shingles: No Hx Sickle Cell Disease: No Hx Unexplained Bleeding: No - INTEGUMENTARY Hx Dermatological Problems: No Hx Basil Cell: No Hx Eczema: No Hx Melanoma: No Hx Psoriasis: No Hx Squamous Cell: No - MUSCULOSKELETAL/RHEUMATOLOGICAL Hx Falls: Yes - GASTROINTESTINAL Hx Diverticulitis: Yes - GENITOURINARY/GYNECOLOGICAL Hx Incontinence: Yes - PSYCHIATRIC Hx Substance Use: No - SURGICAL HISTORY Hx Appendectomy: Yes Hx Cholecystectomy: Yes - ANESTHESIA Hx Anesthesia Reactions: No Hx Malignant Hyperthermia: No Meds Allergies/Adverse Reactions: Allergies Allergy/AdvReac Type Severity Reaction Status Date / Time amoxicillin Allergy RASH Verified 10/17/17 02:07 Penicillins Allergy RASH Verified 10/17/17 02:07 - Medications Medications: Current Medications Acetaminophen (Tylenol 325mg Tab) 650 mg PO Q6H PRN PRN Reason: Fever >100.4 F Dextrose/Sodium Chloride (Dextrose 5%/0.45% Ns 1000 Ml) 1,000 mls @ 100 mls/hr IV .Q10H [facility] Last Admin: 03/16/18 21:01 Dose: 100 mls/hr Metronidazole (Flagyl) 500 mg in 100 mls @ 100 mls/hr IVPB Q8 [facility] PRN Reason: Protocol Last Admin: 03/17/18 05:06 Dose: 100 mls/hr Famotidine (Pepcid 20mg/50ml Premix) 20 mg in 50 mls @ 100 mls/hr IVPB DAILY [facility] Ceftriaxone Sodium (Rocephin 1 Gram Ivpb) 1 gm in 100 mls @ 100 mls/hr IVPB DAILY [facility] PRN Reason: Protocol Ondansetron HCl (Zofran Inj) 4 mg IVP Q6H PRN PRN Reason: Nausea/Vomiting Physical Exam - Constitutional Appears: No Acute Distress - Head Exam Head Exam: ATRAUMATIC, NORMAL INSPECTION, NORMOCEPHALIC - Eye Exam Eye Exam: EOMI, Normal appearance - ENT Exam ENT Exam: Mucous Membranes Moist - Respiratory Exam Respiratory Exam: Clear to Auscultation Bilateral, NORMAL BREATHING PATTERN. absent: Rales, Rhonchi, Wheezes, Respiratory Distress - Cardiovascular Exam Cardiovascular Exam: REGULAR RHYTHM, +S1, +S2. absent: Bradycardia, Tachycardia , Systolic Murmur - GI/Abdominal Exam GI & Abdominal Exam: Normal Bowel Sounds, Soft. absent: Diminished Bowel Sounds , Distended, Firm, Guarding, Hernia - Extremities Exam Extremities exam: Positive for: normal inspection. Negative for: pedal edema, tenderness, pedal pulses present - Neurological Exam Neurological exam: Alert, Oriented x3 - Skin Skin Exam: Dry, Intact, Normal Color, Warm Results - Vital Signs Recent Vital Signs: Last Vital Signs Temp 98.0 F 03/17/18 06:00 Pulse 65 03/17/18 06:00 Resp 18 03/17/18 06:00 BP 101/54 L 03/17/18 06:00 Pulse Ox 95 03/17/18 06:00 - Labs Result Diagrams: 03/17/18 05:45 03/17/18 05:45 Labs: Laboratory Results - last 24 hr 03/16/18 03/17/18 03/17/18 21:10 05:45 05:45 WBC 8.1 RBC 3.58 Hgb 11.0 L Hct 33.4 L MCV 93.3 MCH 30.7 MCHC 32.9 RDW 13.6 Plt Count 108 L MPV 9.6 Sodium 144 Potassium 4.5 Chloride 113 H Carbon Dioxide 21 Anion Gap 15 BUN 19 Creatinine 1.2 Est GFR ( Amer) 52 Est GFR (Non-Af Amer) 43 Random Glucose 109 Calcium 8.3 L Total Bilirubin 1.5 H AST 234 H D ALT 170 H Alkaline Phosphatase 157 H D Total Protein 6.2 Albumin 3.1 Globulin 3.1 Albumin/Globulin Ratio 1.0 L Urine Color Yellow Urine Appearance Slight-cloudy Urine pH 6.0 Ur Specific Calion 1.025 Urine Protein 30 H Urine Glucose (UA) Negative Urine Ketones Negative Urine Blood Large H Urine Nitrate Negative Urine Bilirubin Moderate H Urine Urobilinogen 1.0 H Ur Leukocyte Esterase Moderate H Urine RBC 25 - 30 Urine WBC 10 - 15 Ur Epithelial Cells Many Amorphous Sediment Small Assessment & Plan - Assessment and Plan (Free Text) Assessment: 82yo female with PMHx of diverticulitis, hypertension, seizure who was bib EMS with complaint of nausea, vomiting, abd pain, chills, subjective fever found to have elevated LFTs and dilated common bile duct. Plan: - abd US showed liver infiltrates suggested of fatty liver, CBD dilation, 1.2 cm - CT abd/pelvis showed biliary dilatation, 1.3 cm, a large collection of gas and fluid with an air fluid level again visualized adjacent to the duodenum, likely represents a duodenal diverticulum. - will order an MRCP without contrast to r/o cbd stone - hepatolgy serolgy - NPO until after MRCP, then can be started on CLD if tolerating - LFT's downtrending, continue to monitor Case reviewed and discussed with Dr. Soria <Osmel Soria V - Last Filed: 03/18/18 03:10> Meds - Medications Medications: Current Medications Acetaminophen (Tylenol 325mg Tab) 650 mg PO Q6H PRN PRN Reason: Fever >100.4 F Dextrose/Sodium Chloride (Dextrose 5%/0.45% Ns 1000 Ml) 1,000 mls @ 100 mls/hr IV .Q10H [facility] Last Admin: 03/18/18 02:45 Dose: 100 mls/hr Metronidazole (Flagyl) 500 mg in 100 mls @ 100 mls/hr IVPB Q8 [facility] PRN Reason: Protocol Last Admin: 03/17/18 22:12 Dose: 100 mls/hr Famotidine (Pepcid 20mg/50ml Premix) 20 mg in 50 mls @ 100 mls/hr IVPB DAILY [facility] Last Admin: 03/17/18 12:45 Dose: 100 mls/hr Ceftriaxone Sodium (Rocephin 1 Gram Ivpb) 1 gm in 100 mls @ 100 mls/hr IVPB DAILY [facility] PRN Reason: Protocol Last Admin: 03/17/18 12:45 Dose: 100 mls/hr Ondansetron HCl (Zofran Inj) 4 mg IVP Q6H PRN PRN Reason: Nausea/Vomiting Phenytoin Sodium (Dilantin) 100 mg PO TID [facility] Last Admin: 03/17/18 17:28 Dose: 100 mg Results - Vital Signs Recent Vital Signs: Last Vital Signs Temp 98.7 F 03/17/18 22:22 Pulse 74 03/17/18 22:22 Resp 20 03/17/18 22:22 BP 146/74 03/17/18 22:22 Pulse Ox 96 03/17/18 22:22 - Labs Result Diagrams: 03/17/18 05:45 03/17/18 05:45 Labs: Laboratory Results - last 24 hr 03/17/18 03/17/18 05:45 05:45 WBC 8.1 RBC 3.58 Hgb 11.0 L Hct 33.4 L MCV 93.3 MCH 30.7 MCHC 32.9 RDW 13.6 Plt Count 108 L MPV 9.6 Sodium 144 Potassium 4.5 Chloride 113 H Carbon Dioxide 21 Anion Gap 15 BUN 19 Creatinine 1.2 Est GFR ( Amer) 52 Est GFR (Non-Af Amer) 43 Random Glucose 109 Calcium 8.3 L Total Bilirubin 1.5 H AST 234 H D ALT 170 H Alkaline Phosphatase 157 H D Total Protein 6.2 Albumin 3.1 Globulin 3.1 Albumin/Globulin Ratio 1.0 L Attending/Attestation - Attestation I have personally seen and examined this patient.: Yes I have fully participated in the care of the patient.: Yes I have reviewed all pertinent clinical information: Yes Notes (Text): brit 03/18/18 03:10
[2018-03-17 12:09] LABS: HEPATITIS B SURFACE AG Negative (NEGATIVE)
[2018-03-17 12:15] LABS: HEPATITIS A IGM NEGATIVE (NEGATIVE); HEPATITIS B CORE AB NEGATIVE (NEGATIVE)
[2018-03-17 12:26] LABS: HEPATITIS C ANTIBODY NEGATIVE (NEGATIVE)
[2018-03-17] MEDS: cefTRIAXone 1 gm 1 GM/100 ML BAG IVPB SCH (12:45)
[2018-03-17] MEDS: Famotidine 20mg/50ml 20 MG/50 ML BAG IVPB SCH (12:45)
--- NOTE | 2018-03-17 16:52 | CARD ---
APPROVED REPORT EKG Measurement Heart [id number] <Conclusion> Normal sinus rhythm Inferior infarct, age undetermined Abnormal ECG
[2018-03-17] MEDS: Dextrose 5%/0.45% NS 1,000 ML IV SCH (17:27)
--- NOTE | 2018-03-17 17:35 | MRI ---
PROCEDURE: Magnetic Resonance Cholangiopancreatography HISTORY: COMPARISON: 03/16/2018. TECHNIQUE: Multiplanar, multisequence MR images of the abdomen were obtained, including heavily T2 weighted MRCP images of the biliary system. Rotating maximum intensity projection images of the biliary system were generated. FINDINGS: MRCP: Dilated extrahepatic common bile duct with a a roughly 1 centimeter filling defect in the distal common bile duct compatible with a calculus. LIVER: Unremarkable. GALLBLADDER: Unremarkable. SPLEEN: Unremarkable. PANCREAS: Unremarkable. ADRENALS: Unremarkable. KIDNEYS: Multiple bilateral renal cysts. 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 ASCITES: None. OTHER FINDINGS: Small bibasilar dependent atelectatic change/ infiltrates. IMPRESSION: Dilated extrahepatic common bile duct with a a roughly 1 centimeter filling defect in the distal common bile duct compatible with a calculus.
--- NOTE | 2018-03-17 21:26 | HP ---
DATE OF EXAM: 03/17/2018 HISTORY OF PRESENT ILLNESS: This 82-year-old female was examined at her bedside on the cardiac unit and case was reviewed in detail with nurse, Kenzie Richter, registered nurse. The patient presented to the [facility] ER complaining of nausea, vomiting, back pain, fever, chills for the past 48 hours. She was having difficulty keeping any fluid or food down and on initial workup was noted to have markedly elevated liver function testing including bilirubin of 2.9, AST 397, ALT 237, alk phos 228. PAST MEDICAL HISTORY: The patient's past medical history includes Dilantin for presumed seizures and the patient is status post cholecystectomy. The patient is a poor historian and admits to a sensitivity to penicillin and amoxicillin since childhood. Review of her medical record reveals that she has a history of chronic hypertension with history of seizure, chronic anxiety, cholecystectomy. OUTPATIENT MEDICATIONS: Coreg, Zestril, Dilantin. SOCIAL HISTORY: The patient noting history of former smoker. No current alcohol and no history of IV drug misuse or abuse. FAMILY HISTORY: Unknown. REVIEW OF SYSTEMS: Constitutional review: Fever and chills. Eye review: No change in visual acuity. Ear review: No hearing loss. Throat review: No swallowing difficulty. Neck review: No stiffness. Cardiac review: Chronic hypertension. Pulmonary: No cough. No hemoptysis. GI: As per HPI. Status post cholecystectomy. : Denied dysuria. Skin: No rash. Vascular: No claudication. Psychological: Chronic anxiety. Neurological: History of seizures. PHYSICAL EXAMINATION: VITAL SIGNS: Physical exam in the emergency room showed a temperature of 101.5, presently 98; respirations 18; pulse 65; blood pressure 101/54; pulse ox 95%. HEENT: Head normocephalic, atraumatic. Eyes: No icterus. Ears: Clear. Throat: Noninjected. NECK: Supple. HEART: Regular S1, S2. LUNGS: Clear. ABDOMEN: Soft. Right upper quadrant discomfort on deep palpation. No rebound. No guarding. EXTREMITIES: No edema. SKIN: No rash. VASCULAR: Skin warm to touch. NEURO: Grossly intact. PSYCHOLOGICAL: Poor memory. LABORATORY DATA: Sodium 144, K 4.5, chloride 113, bicarb 21, BUN 10, creatinine 1.2, random blood sugar 109, current bilirubin 1.5, AST 234, ALT 170, alk phos 157. Procalcitonin level 0.16. Lipase 360. Hepatitis A, B, C serology negative. White count 8100, hemoglobin 11, hematocrit 33.4, platelets 108,000. PT/INR 1, PTT 20.4. Urinalysis showed 10-15 wbc's. Chest x-ray was reviewed, it showed no infiltrates, no pleural effusion, no pneumothorax, no congestive heart failure. Abdominopelvic CT was reviewed. It showed biliary duct dilatation with a large collection of gas adjacent to the duodenum consistent with a possible duodenal diverticulum. Sigmoid diverticulosis was identified and hypodense cystic lesions were noted in the kidneys. Hiatal hernia was noted as well as possible gastritis. EKG was reviewed, it showed a normal sinus rhythm with nonspecific ST-T wave changes. IMPRESSION: An 82-year-old female with probable obstructive biliary tract sepsis, status post cholecystectomy, rule out common bile duct stone causing gallstone pancreatitis, also with mild azotemia, cystic kidney changes on CT requiring further evaluation with renal ultrasound and/or MRI, which cannot be done with contrast given renal insufficiency at this point in time. PLAN: My plans are to consult Dr. Osmel Soria from GI for probable MRCP and possible ERCP of retained common bile duct. The patient will be given D5 0.45 saline at 100 mL/hour and blood and urine cultures have been requested while continuing her on Dilantin 100 mg p.o. t.i.d. with seizure precautions, maintaining n.p.o. until clarified by GI. Continuing Rocephin 1 g IV every 24 and Flagyl 500 mg IV every 8. She will continue on Pepcid 20 mg IV daily, Tylenol 650 p.o. every 6 hours p.r.n. pain or temperature greater than 101 and Zofran 4 mg IV every 6 hours p.r.n. nausea and vomiting. She does receive Pepcid 20 mg IV daily. Pending results of MRCP and abdominal ultrasound, additional diagnostic testing and workup will be entertained. I have placed a consultation with Dr. Rui Mulligan from Urology regarding the notation of a possible complex renal cyst on her abdominopelvic CAT scan, which will need his evaluation to rule out any underlying renal pathology. Greater than 75 minutes was spent in the care and management, review of labs, orders and x-rays. This case was reviewed in detail with the patient, nursing, Dr. Osmel Soria from . All questions were answered. Kaylie Sarah MD GUILLERMO
[2018-03-18] MEDS: Dextrose 5%/0.45% NS 1,000 ML IV SCH (02:45)
[2018-03-18] MEDS: metroNIDAZOLE IV 500 mg/100 ml 500 MG/100 ML BAG IVPB SCH ×3 (06:45→22:58)
[2018-03-18 07:24] LABS: ALB/GLOB RATIO 0.9 (1.1-1.8); ALBUMIN 3.2 g/dL (3.0-4.8); CALCIUM 8.8 mg/dL (8.4-10.5)
[2018-03-18] MEDS: Famotidine 20mg/50ml 20 MG/50 ML BAG IVPB SCH (09:25)
[2018-03-18] MEDS: cefTRIAXone 1 gm 1 GM/100 ML BAG IVPB SCH (10:01)
--- NOTE | 2018-03-18 15:39 | CON ---
DATE: 03/18/2018 CHIEF COMPLAINT Nausea, vomiting, back pain, fever and chills. HISTORY OF PRESENT ILLNESS This is an 82-year-old female who was seen in [facility]. The patient was admitted yesterday with complaints of back pain, nausea, vomiting, fever and chills for a few days. She was unable to keep any fluids or fluids down. She was noted to have markedly elevated liver function tests and was admitted for evaluation and treatment. The patient has a history of multiple renal cysts, some of which appeared to be complex and a consultation was requested. The patient reports she is voiding well. She does report her urine is dark in color but it is unclear if if she is having gross hematuria. She reports no frequency or urgency, but is voiding small amounts of dark colored urine. She does have some mild dysuria. She reports she does have mild chronic urinary frequency and feels this is unchanged from at home. PAST MEDICAL HISTORY History of seizures, cholecystectomy years ago, hypertension, anxiety. OUTPATIENT MEDICATIONS: Her outpatient medications include Coreg, Zestril and Dilantin. CURRENT MEDICATIONS: Include Ativan, IV fluids, Dilantin, Flagyl, Pepcid, Rocephin, Tylenol and Zofran. ALLERGIES ALLERGIC TO PENICILLINS. FAMILY HISTORY: Noncontributory for this admission. SOCIAL HISTORY Former smoker, no current smoking. Denies EtOH use. REVIEW OF SYSTEMS: On review of systems, the patient currently complaining of anxiety and insomnia. She does report some mild diffuse abdominal pain but reports this has improved. No costovertebral angle or back pain. She does report some weakness and does report some dysuria and dark colored urine. Other systems are negative. PHYSICAL EXAMINATION: GENERAL: The patient is awake, alert and answering questions. VITAL SIGNS: He is afebrile. Temperature of 98.1 pulse 76, BP 149/80, respirations 20. NECK: Her neck is supple. There is no adenopathy or mass noted. CHEST: Exam of the chest reveals a normal inspiratory effort. CARDIAC: Exam showed positive S1, S2. There is trace peripheral edema noted. ABDOMEN: The abdomen is soft, nontender, nondistended. There is no hepatosplenomegaly. There is no costovertebral angle tenderness. GENITOURINARY: On exam, there is no suprapubic tenderness. Bladder is not distended. EXTREMITIES: There is no cyanosis. There is trace edema on laboratory exam,. LABORATORY DATA: WBC count 8.1. Creatinine now 1.1. Bilirubin was 2.9, has come down to 0.9. Elevated AST and ALT are coming down, lipase was elevated. Urinalysis showed 25-30 RBCs, 10-15 WBCs. Nitrites were negative, trace protein, moderate bilirubin. Blood cultures are preliminarily negative. No urine culture available. On radiologic exam, the patient had an abdominal ultrasound and abdominal CT as well as an MRCP abdominal ultrasound showed the lower pole the right kidney. There was a thick-walled complex cyst measuring 3.1 x 2.6 x 2.5 cm with few additional smaller renal cysts. Follow up ultrasound and possible MRI were recommended. The liver had increased echogenicity, bile duct was dilated. On abdominopelvic CT was done on 03/16/2018 which showed biliary dilatation. There is a collection of gas and fluid with an air-fluid level visualized adjacent to the duodenum. There is cecal distention with diverticulosis. There are multiple hypodense cysto cystic lesions identify the kidneys few of which are indeterminate. MRCP showed a dilated extrahepatic common bile duct with a 1 cm filling defect in the distal common bile duct compatible with a stone. Kidney showed multiple bilateral renal cysts. IMPRESSION AND PLAN This is an 82-year-old female admitted with abdominal pain which appears to be biliary in origin likely from the common bile duct stone. Urologically, the patient does appear to have hematuria. I would await results of her urine culture and treat her with appropriate antibiotics as positive. S4, S3, multiple renal cysts, some of which appeared to be complex. PLAN: Will be to reimage once her acute biliary issues have been resolved. Patient's GFR has been improving with IV hydration and likely if she is fully hydrated, her GFR will be normal, at that point, I would then recommend either a CT with IV contrast or an MRI of her kidneys without and with intravenous contrast to see if there is any contrast enhancement of the renal lesions. Again, given her age and her acute issue which appears to be biliary colic, we can likely wait on the imaging until her acute issues have resolved. Thank you for allowing me to participate the care of this patient. We will follow her with you. Rui Mulligan MD [facility] # [id number]
--- NOTE | 2018-03-18 22:31 | PN ---
DATE: 03/18/2018 SUBJECTIVE: This 82-year-old female was examined at the bedside in the presence of her nurse, Milagro Sifuentes, registered nurse. The patient remains alert but confused in the setting of recent fever and elevated liver function testing with MRCP of her abdomen showing a hepatic stone lodged in her common bile duct, status post cholecystectomy. The patient at present has no fever or chills. She is alert but confused to person, time, and place. She is receiving IV antibiotics and IV fluids and is being followed by Dr. Osmel Soria from . At present, she remains on IV fluids of D5W at 100 mL per hour given recent hypernatremia and her diet will be adjusted according to Dr. Osmel Soria from . PHYSICAL EXAMINATION: VITAL SIGNS: monitoring and evaluation advisor normal sinus rhythm, temperature 98.1, respirations 20, pulse 76, and blood pressure 149/80. Pulse ox 94% room air. HEENT: Head: Normocephalic, atraumatic. Eyes: No icterus. Ears: Clear. Throat: Noninjected. NECK: Supple. HEART: Regular S1, S2. LUNGS: Clear. ABDOMEN: Soft. No rebound. No guarding. No tenderness. EXTREMITIES: No edema. SKIN: Without rash or ulceration. Warm to touch. NEUROLOGICAL: Alert but disoriented. VASCULAR: Legs warm to touch. LABORATORY DATA: White count 8100, hemoglobin 11, hematocrit 33.4, platelets 108,000. PT/INR 1, PTT 20.4. Sodium 149, K 4.2, chloride 114, bicarb 24, BUN 13, creatinine 1.1, random blood sugar 90. Bilirubin 0.9; AST 137, previously 397; ALT 137, previously 237; alkaline phosphatase 179, previously 228. Procalcitonin level 0.16. Urinalysis showed 10-15 wbc's with many epithelial cells and hepatitis A, B, C serology was negative. Urine culture shows a probable contamination and blood culture showed no growth at 48 hours. MRCP was reviewed, it is consistent with a dilated extrahepatic common bile duct with a 1 cm defect in the distal common bile duct compatible with a biliary calculus. IMPRESSION: Gallstone pancreatitis in this 82-year-old female status post cholecystectomy who presented with fever, chills, nausea, vomiting, and elevated liver function testings and fever, now n.p.o. on IV Rocephin and Flagyl, receiving D5W at 100 mL/hour for newly noted hypernatremia and also receiving Dilantin 100 mg p.o. t.i.d. for history of seizures and Pepcid 20 mg IV daily for antacid prophylaxis. The patient remains on seizure and fall precautions. She will continue IV fluids and bedside physical therapy. Additional testing and workup will be outlined by Dr. Osmel Soria from GI and a consultation with Dr. Rui Mulligan from Urology regarding concerns of a complex renal cyst remain pending. The patient will have repeat comprehensive metabolic panel in the a.m., IV fluids and diet will be adjusted accordingly. All of the above was discussed with the patient and nursing at bedside. A call was placed to her son, Dajuan, to advise him of the above. Greater than 35 minutes was spent in the care management, review of labs, orders, x-rays, and outlining of adjusted IV fluids and medications for this patient today. All questions were answered. Kaylie Sarah MD MTDD
[2018-03-19] MEDS: metroNIDAZOLE IV 500 mg/100 ml 500 MG/100 ML BAG IVPB SCH ×4 (06:15→22:30)
[2018-03-19 06:52] LABS: ALBUMIN 3.2 g/dL (3.0-4.8); ALT/SGPT 98 U/L (7-56); AST/SGOT 69 U/L (14-36); BLOOD UREA NITROGEN 8 mg/dL (7-21); CALCIUM 8.4 mg/dL (8.4-10.5); GFR AFRICAN-AMERICAN > 60; GFR NON-AFRICAN AMERICAN 53
[2018-03-19] MEDS: cefTRIAXone 1 gm 1 GM/100 ML BAG IVPB SCH (11:20)
[2018-03-19] MEDS: Famotidine 20mg/50ml 20 MG/50 ML BAG IVPB SCH (11:21)
[2018-03-19] MEDS ORDERED: Potassium Chloride 20 mEq ER Tab PO ONE ×2 (14:10→16:15)
--- NOTE | 2018-03-19 21:19 | PN ---
DATE: 03/19/2018 SUBJECTIVE: This 82-year-old female was examined at her bedside on the Cardiac Unit and this case was reviewed in detail with herself, her family at the bedside including her granddaughter and grandson Malcolm as well as nurse, Princess Edwards, registered nurse. The patient remains hospitalized in the setting of fever, chills, nausea, vomiting and a newly diagnosed biliary tract stone approximately 1 cm in size at her distal common bile duct on MRCP studies. The patient at present denies any fever, chills, chest pain or shortness of breath. She is receiving parenteral antibiotics, IV Pepcid, IV Zofran and IV fluids. She was noted yesterday to be hypernatremic and has had her IV fluids adjusted to D5W at 100 mL/hour. She has been cleared for a clear liquid diet this morning by Dr. Osmel Soria from GI and I will discuss with him the next step whether that will be ERCP for removal of this common bile duct stone obstruction. PHYSICAL EXAMINATION: VITAL SIGNS: Shows normal sinus rhythm on the research engineer. Temperature 98.1, respirations 19, pulse 78, blood pressure 133/69 and pulse ox 97% on room air. HEENT: Head: Normocephalic, atraumatic. Eyes: No icterus. Ears: Clear. Throat: Noninjected. NECK: Supple. HEART: Regular S1, S2. LUNGS: Clear. ABDOMEN: Soft. No rebound, no guarding. No tenderness. EXTREMITIES: No edema. SKIN: Without rash. NEUROLOGICAL: Intact. PSYCHOLOGICAL: Alert and oriented x3. VASCULAR: Legs warm to touch. LABORATORY DATA: White count 8100, hemoglobin 11, hematocrit 33.4, platelets 108,000. Sodium 146, K 3.4, chloride 109, bicarb 24, BUN 8, creatinine 1, random blood sugar is 114. Bilirubin 0.5, AST 69, ALT 98, alk phos 150. Hepatitis A, B, C serologies are negative. IMPRESSION: An 82-year-old female admitted with fever, chills, nausea, vomiting, biliary tract obstruction secondary to retained stone in her common bile duct, status post cholecystectomy with comorbidities of chronic anxiety, hypernatremia, hypokalemia, seizure syndrome, degenerative arthritis and now with improved metabolic encephalopathy. PLAN: Discussed with nursing will be to continue with K-Dur 20 mEq p.o. x1 dose and repeating a potassium level in the a.m. as well as hemoglobin/hematocrit. She will continue on D5W at 80 mL/hour, Dilantin 100 mg p.o. t.i.d. with seizure precautions, Flagyl 500 mg IV every 8 hours, Rocephin 1 g every 24 hours IV, Pepcid 20 mg IV daily and Zofran 4 mg IV every 6 hours p.r.n. nausea, vomiting and Tylenol 650 mg p.o. every 6 hours p.r.n. pain or temperature greater than 101. She does remain on seizure precautions, fall precautions and is ordered to have physical therapy for reconditioning and gait training. I will discuss with GI, their intentions for further treatment of this biliary tract stone obstruction in the a.m. and all of the above was discussed in detail with patient, nursing and family at bedside. Greater than 35 minutes was spent in the care, review of labs, orders and outlining of instructions for the patient and family today. All questions were answered. Kaylie Sarah MD MTDShaheed
--- NOTE | 2018-03-19 22:28 | CON ---
DATE: 03/18/2018 HISTORY OF PRESENT ILLNESS: This patient was seen on 03/18/2018, this is a delayed dictation. The patient was comfortable on clear liquid diet at the time of examination. The family was at bedside. The patient is comfortable, tolerating the diet. Denies any abdominal pain. PHYSICAL EXAMINATION VITAL SIGNS: Afebrile, blood pressure is 149/80, pulse 76, respirations 20, O2 saturation 94%. HEENT: Atraumatic, anicteric. NECK: Supple. HEART: S1 and S2 heard. LUNGS: Bilateral air entry present. ABDOMEN: Soft. There is no mass palpable. EXTREMITIES: No cyanosis, no clubbing. NEUROLOGICAL: Alert, oriented. LABORATORY DATA: Hemoglobin 11, hematocrit 33.4, WBC is 8.1, platelets 180. LFT shows downward trend. Total bilirubin 0.9. MRCP done earlier was reviewed. The patient was found to have a 1 cm stone in the common bile duct with dilated CBD. IMPRESSION AND PLAN: Common bile duct stone, possible gallstone pancreatitis. Complex renal cyst. The patient did have mildly elevated lipase level; however, the pancreatic contour appears okay with imaging. Her LFTs also showed significant improvement. Patient has common bile duct stone, possible increasing improvement of the liver function tests, possible pancreatic stone . I had a detailed discussion with the patient's family. Risks, benefits, and alternatives explained. Agreeable for endoscopic ultrasound to further evaluate. We would recommend . I had a detailed discussion with the patient and the patient's son who has the power of scissors grinder. We would consider endoscopic ultrasonography and endoscopic retrograde cholangiopancreatography to further evaluate the common bile duct stone. We will continue to closely follow up her care and suggest further management based on the clinical course. Osmel Soria MD
[2018-03-20] MEDS: metroNIDAZOLE IV 500 mg/100 ml 500 MG/100 ML BAG IVPB SCH ×3 (05:57→21:43)
[2018-03-20 06:38] LABS: HEMOGLOBIN 12.1 g/dL (12.0-16.0)
[2018-03-20] MEDS: cefTRIAXone 1 gm 1 GM/100 ML BAG IVPB SCH (10:15)
[2018-03-20] MEDS: Famotidine 20mg/50ml 20 MG/50 ML BAG IVPB SCH (10:15)
--- NOTE | 2018-03-20 14:54 | CP.PCM.PN ---
<KenanSeema urbina - Last Filed: 03/20/18 16:59> Subjective - Date & Time of Evaluation Date of Evaluation: 03/20/18 Time of Evaluation: 12:00 - Subjective Subjective: PGY-[address] Soria's service patient seen and examined at bedside. No acute distress. Patient states that she is feeling better. SH estates that seh is not linger n/v, denies abd pain. MRCP showed dilated extrahepatic cbd with 1 cm stone. Patient's son states that since patient is feeling better he would like to flores a repeat abd US to see if stone has passed Objective - Vital Signs/Intake and Output Vital Signs (last 24 hours): Temp Pulse Resp BP Pulse Ox 98.1 F 86 20 149/53 L 97 03/20/18 08:01 03/20/18 08:01 03/20/18 08:01 03/20/18 08:01 03/20/18 08:01 Intake and Output: 03/20/18 03/20/18 06:59 18:59 Output Total 1050 Balance -1050 - Medications Medications: Current Medications Acetaminophen (Tylenol 325mg Tab) 650 mg PO Q6H PRN PRN Reason: Fever >100.4 F Metronidazole (Flagyl) 500 mg in 100 mls @ 100 mls/hr IVPB Q8 [facility] PRN Reason: Protocol Last Admin: 03/20/18 14:35 Dose: 100 mls/hr Famotidine (Pepcid 20mg/50ml Premix) 20 mg in 50 mls @ 100 mls/hr IVPB DAILY [facility] Last Admin: 03/20/18 10:15 Dose: 100 mls/hr Ceftriaxone Sodium (Rocephin 1 Gram Ivpb) 1 gm in 100 mls @ 100 mls/hr IVPB DAILY [facility] PRN Reason: Protocol Last Admin: 03/20/18 10:15 Dose: 100 mls/hr Dextrose (Dextrose 5% In Water 1000 Ml) 1,000 mls @ 80 mls/hr IV .[id number] [facility] Last Admin: 03/20/18 05:56 Dose: 80 mls/hr Lorazepam (Ativan) 0.5 mg PO Q6H PRN; Protocol PRN Reason: Anxiety Ondansetron HCl (Zofran Inj) 4 mg IVP Q6H PRN PRN Reason: Nausea/Vomiting Phenytoin Sodium (Dilantin) 100 mg PO TID [facility] Last Admin: 03/20/18 14:35 Dose: 100 mg - Labs Labs: 03/20/18 06:00 03/20/18 06:00 PT 11.4 SECONDS (9.4-12.5) 03/16/18 18:58 INR 1.00 (0.93-1.08) 03/16/18 18:58 APTT 20.4 Seconds (25.1-36.5) L 03/16/18 18:58 - Constitutional Appears: No Acute Distress - Head Exam Head Exam: ATRAUMATIC, NORMOCEPHALIC - Eye Exam Eye Exam: EOMI, Normal appearance - ENT Exam ENT Exam: Mucous Membranes Moist - Respiratory Exam Respiratory Exam: Clear to Ausculation Bilateral, NORMAL BREATHING PATTERN. absent: Decreased Breath Sounds, Rales, Rhonchi, Wheezes, Respiratory Distress - Cardiovascular Exam Cardiovascular Exam: REGULAR RHYTHM, +S1, +S2. absent: Bradycardia, Tachycardia , Murmur - GI/Abdominal Exam GI & Abdominal Exam: Soft, Normal Bowel Sounds. absent: Distended, Firm, Guarding, Tenderness - Extremities Exam Extremities Exam: Normal Inspection. absent: Pedal Edema, Tenderness - Neurological Exam Neurological Exam: Alert, Awake, Oriented x3 - Skin Skin Exam: Dry, Intact, Normal Color, Warm Assessment and Plan - Assessment and Plan (Free Text) Assessment: 82yo female with PMHx of diverticulitis, hypertension, seizure who was bib EMS with complaint of nausea, vomiting, abd pain, chills, subjective fever found to have elevated LFTs and dilated common bile duct. Plan: - abd US showed liver infiltrates suggested of fatty liver, CBD dilation, 1.2 cm - CT abd/pelvis showed biliary dilatation, 1.3 cm, a large collection of gas and fluid with an air fluid level again visualized adjacent to the duodenum, likely represents a duodenal diverticulum. - MRCP showed dilated extrahepatic cbd with 1 cm stone - acute hepatitis panel was negative - cont CLD if tolerating - LFT's downtrending, continue to monitor - consider EUS with ERCP with spyglass for 1 cm stone, will do EUS first to evaluate for stone Case reviewed and discussed with Dr. Soria <Osmel Soria V - Last Filed: 03/21/18 00:27> Objective - Vital Signs/Intake and Output Vital Signs (last 24 hours): Temp Pulse Resp BP Pulse Ox 98.2 F 82 18 121/73 97 03/20/18 17:47 03/20/18 17:47 03/20/18 17:47 03/20/18 17:47 03/20/18 17:47 Intake and Output: 03/20/18 03/21/18 18:59 06:59 Intake Total 360 Balance 360 - Medications Medications: Current Medications Acetaminophen (Tylenol 325mg Tab) 650 mg PO Q6H PRN PRN Reason: Fever >100.4 F Metronidazole (Flagyl) 500 mg in 100 mls @ 100 mls/hr IVPB Q8 [facility] PRN Reason: Protocol Last Admin: 03/20/18 21:43 Dose: 100 mls/hr Famotidine (Pepcid 20mg/50ml Premix) 20 mg in 50 mls @ 100 mls/hr IVPB DAILY [facility] Last Admin: 03/20/18 10:15 Dose: 100 mls/hr Ceftriaxone Sodium (Rocephin 1 Gram Ivpb) 1 gm in 100 mls @ 100 mls/hr IVPB DAILY [facility] PRN Reason: Protocol Last Admin: 03/20/18 10:15 Dose: 100 mls/hr Dextrose (Dextrose 5% In Water 1000 Ml) 1,000 mls @ 80 mls/hr IV .[id number] [facility] Last Admin: 03/20/18 21:44 Dose: 80 mls/hr Lorazepam (Ativan) 0.5 mg PO Q6H PRN; Protocol PRN Reason: Anxiety Ondansetron HCl (Zofran Inj) 4 mg IVP Q6H PRN PRN Reason: Nausea/Vomiting Phenytoin Sodium (Dilantin) 100 mg PO TID [facility] Last Admin: 03/20/18 17:46 Dose: 100 mg - Labs Labs: 03/20/18 06:00 03/20/18 06:00 PT 11.4 SECONDS (9.4-12.5) 03/16/18 18:58 INR 1.00 (0.93-1.08) 03/16/18 18:58 APTT 20.4 Seconds (25.1-36.5) L 03/16/18 18:58 Attending/Attestation - Attestation I have personally seen and examined this patient.: Yes I have fully participated in the care of the patient.: Yes I have reviewed all pertinent clinical information, including history, physical exam and plan: Yes Notes (Text): brit 03/20/18 23:56
--- NOTE | 2018-03-20 20:11 | PN ---
DATE: 03/20/2018 SUBJECTIVE: This 82-year-old female was examined at her bedside and this case was reviewed in detail with her nurse, Sandy Mckenna. The patient is awaiting GI followup by Dr. Osmel Soria from regarding obstructive biliary tract stone in a patient status post cholecystectomy with MRCP showing dilated common bile duct and a 1-cm bile duct stone, explaining her presentation of fever, chills, nausea, vomiting, and electrolyte imbalance. As per Dr. Osmel Soria from , plans are being made to obtain proper consent and power of crane man understanding for this patient for probable endoscopic ultrasound and ERCP in an attempt to remove her common bile duct tube blockage. PHYSICAL EXAMINATION: GENERAL: surveillance system monitor shows normal sinus rhythm. VITAL SIGNS: Temperature 98.1, respirations 20, pulse 86, blood pressure 149/53, and pulse ox 97% on room air. HEENT: Head: Normocephalic, atraumatic. Eyes: No icterus. Ears: Clear. Throat: Noninjected. NECK: Supple. HEART: Regular S1, S2. LUNGS: Clear. ABDOMEN: Soft. No rebound, no guarding, no tenderness. There is mild discomfort on palpation of her right upper quadrant on abdominal exam. EXTREMITIES: Show no edema. SKIN: Without rash. NEUROLOGICAL: Intact. PSYCHOLOGICAL: Alert. VASCULAR: Legs warm to touch. LABORATORY DATA: Blood cultures: No growth. Urine culture: Contaminated specimen. White count 8100, hemoglobin 12.1, hematocrit 36.6, platelets 108,000. PT/INR 1, PTT 20.4. Sodium 146, K 4.7, chloride 109, bicarb 24, BUN 8, creatinine 1, random blood sugar 114. Bilirubin 0.5, AST 69, ALT 98, alk phos 150. Hepatitis A, B, C serologies are negative. MRCP was reviewed and showed a dilated extrahepatic common bile duct with a 1-cm filling defect in the distal common bile duct compatible with a gallstone. IMPRESSION: Probable gallstone pancreatitis in this elderly 82-year-old woman with chronic seizure syndrome, peptic ulcer disease with gastroesophageal reflux disease, history of cholecystectomy. PLAN: To await followup with Dr. Osmel Soria from regarding plans for endoscopic ultrasound and probable ERCP. She will continue on D5W at 80 mL/hour given recent hypernatremia. She is ordered to have Ativan 0.5 mg p.o. every 6 p.r.n. anxiety, Dilantin 100 mg p.o. t.i.d., Flagyl 500 mg IV every 8, Pepcid 20 mg IV daily, Rocephin 1 g IV every 24, Zofran 4 mg IV every 6 hours p.r.n. nausea or vomiting, Tylenol 650 p.o. every 6 hours p.r.n. pain or temperature greater than 101, and she remains on clear liquid diet as recommended by GI. She will continue on fall precautions, seizure precautions. She is ordered to have physical therapy for ambulation safety and ultimate plan will be to discharge this patient to the care of her family who provides 24-hour supervision for her as an outpatient. Greater than 35 minutes was spent in the care, management, review of labs, orders, x-rays, and discussion of this case with patient, nursing, and Gastroenterology. All questions were answered. Kaylie Sarah MD MTDShaheed
[2018-03-21] MEDS: metroNIDAZOLE IV 500 mg/100 ml 500 MG/100 ML BAG IVPB SCH ×3 (05:32→21:41)
[2018-03-21] MEDS: Famotidine 20mg/50ml 20 MG/50 ML BAG IVPB SCH (09:33)
[2018-03-21] MEDS: cefTRIAXone 1 gm 1 GM/100 ML BAG IVPB SCH (09:33)
[2018-03-21] MEDS ORDERED: Iohexol 240 (50 ml) ONE (14:43)
[2018-03-21] MEDS ORDERED: Indomethacin 50 MG Suppository PR ONE (14:44)
[2018-03-21] MEDS ORDERED: Etomidate 20 mg/10ml Inj IV ONE (15:38)
[2018-03-21] MEDS ORDERED: Succinylcholine 200 mg/10 ml Inj IV ONE (15:38)
[2018-03-21] MEDS ORDERED: Lidocaine 1% Inj (20ml) ONE (16:03)
[2018-03-21] MEDS ORDERED: ePHEDrine 50 mg/ml Inj ONE ×2 (16:05→16:35)
[2018-03-21 17:25] LABS: INR 0.97 (0.93-1.08)
[2018-03-21] MEDS ORDERED: Sodium Chloride 0.9% 1,000 ML IV SCH (17:30)
--- NOTE | 2018-03-21 19:00 | PN ---
DATE: 03/21/2018 SUBJECTIVE: This 82-year-old female remains hospitalized, awaiting endoscopic ultrasound and ERCP for possible sphincterotomy and removal of a trapped biliary duct gallstone. At present, the patient remains alert, better oriented, and without complaints of chest pain or shortness of breath. OBJECTIVE: VITAL SIGNS: She is in a normal sinus rhythm on the classroom monitor and her temperature is 98.3, respirations 18, pulse 80, and blood pressure 140/83 with pulse ox 97% on room air. HEENT: Head: Normocephalic, atraumatic. Eyes: No icterus. Ears: Clear. Throat: Noninjected. NECK: Supple. HEART: Regular, S1 and S2. LUNGS: Clear. ABDOMEN: Soft. EXTREMITIES: No edema. SKIN: Without rash. NEUROLOGIC: Intact. PSYCHOLOGIC: Alert and oriented x3. VASCULAR: Legs warm to touch. LABORATORY DATA: Hemoglobin 12.1, hematocrit 36.6. PT/INR 1, PTT 20.4. Sodium 146, K 4.7, chloride 109, bicarb 24. BUN 8, creatinine 1. Random blood sugar 114. Bilirubin 0.5, AST 69, ALT is 98, and alk phos 150. Hepatitis A, B, C serologies are negative. Urinalysis showed rbc's and wbc's with urine culture showing multiple species and probable contamination and blood culture showing no growth at 4 days. IMPRESSION: This is an 82-year-old female admitted with biliary tract sepsis and comorbidities of metabolic encephalopathy improved, chronic anxiety neurosis, seizure syndrome, peptic ulcer disease with gastroesophageal reflux disease, and history of cholecystectomy. PLAN: As discussed with the patient and nurse, Sandy Mckenna, registered nurse about the need to maintain this patient n.p.o. while she awaits ERCP with Dr. Soria today. She will continue on Ativan 0.5 mg p.o. every 6 hours p.r.n. anxiety, D5W at 80 mL/hour, Dilantin 100 mg p.o. t.i.d., Flagyl 500 mg IV every 8 hours, Rocephin 1 g IV every 24 hours, and Pepcid 20 mg IV daily. The patient will have her diet adjusted by GI, pending her clinical progress, and she remains on seizure and fall precautions while receiving physical therapy for reconditioning and gait training. Ultimate plan will be for discharge to home to the care of her family who provides 24 hours supervision as an outpatient. Kaylie Sarah MD [facility]
[2018-03-22] MEDS: Famotidine 20mg/50ml 20 MG/50 ML BAG IVPB SCH (09:00)
[2018-03-22] MEDS: cefTRIAXone 1 gm 1 GM/100 ML BAG IVPB SCH (09:42)
[2018-03-22 17:47] VITALS: BP 126/75; PULSE 88; RESP 19; TEMP 98.1; O2SAT 95
--- NOTE | 2018-03-23 14:40 | DS ---
DATE OF EXAM: 03/22/2018. FINAL DIAGNOSES: Biliary tract obstruction secondary to retained common bile duct stone. DISPOSITION : Transferred to [facility] via ambulance to the care of Dr. Jordan, fish bait processing supervisor as arranged by Dr. Osmel Soria from . DISCHARGE MEDICATIONS: Dilantin 100 mg p.o. t.i.d., Ativan 0.5 mg p.o. every 6 hours p.r.n. anxiety, Zofran 4 mg IV every 6 hours p.r.n. nausea and vomiting, Tylenol 650 mg p.o. every 6 hours p.r.n. pain or temperature greater than 101. The patient did receive Rocephin 1 g IV every 24 hours and Flagyl 500 mg IV every 8 hours. SUMMARY: This is a 82-year-old female who was admitted with nausea, vomiting, fever and chills who was noted on radiographic studies to have a retained common bile duct stone on MRCP. She underwent an endoscopic ultrasound that confirmed this finding, but was too difficult to be removed by Dr. Osmel Soria from by ERCP. We did reach out to Dr. Jordan at the [facility] in [place], [place], who will be accepting this patient for transfer and further evaluation of the above. At the time of the patient's transfer, she was afebrile with temperature 98, respirations 20, pulse 82 and blood pressure 128/76 with a pulse ox of 95% room air. Discharge labs show white count 8100, hemoglobin 12.1, hematocrit 36.6, platelets 127,000. PT/INR was 0.97, PTT 20. Sodium 146, K 4.7, chloride 109, bicarb 24, BUN 8, creatinine 1, random blood sugar 114. Magnesium level was 1.8. Bilirubin 0.5, AST 69, ALT is 98, alk phos 150. Her hepatitis ABC serologies were negative. Blood and urine culture showed no growth and the patient will be discharged to the care of Dr. Jordan, fish bait processing supervisor for further evaluation and management of retained common bile duct stone. This has been discussed with the patient in detail at bedside and her son, Dajuan Brewer by Dr. Osmel Soria in detail. All questions were answered. Kaylie Sarah MD [facility] # [id number] [facility]
== END 2018-03-22 18:40 | disposition short-term general hospital (02) | DRG 207 ==
LOC: ED 18:05 → ERH 20:08 → 3RNO 23:30
PROVIDERS: ADMIT Internal Medicine; ATTEND Internal Medicine
PROC: 0DJ08ZZ Inspection of Upper Intestinal Tract, Via Natural or Artificial Opening Endoscopic (ICD-10-PCS; principal; 2018-03-21 14:15)
DX: K80.51 Calculus of bile duct without cholangitis or cholecystitis with obstruction (principal); K85.10 Biliary acute pancreatitis without necrosis or infection; R56.9 Unspecified convulsions; E87.0 Hyperosmolality and hypernatremia; N39.0 Urinary tract infection, site not specified; K22.2 Esophageal obstruction; K27.9 Peptic ulcer, site unspecified, unspecified as acute or chronic, without hemorrhage or perforation; K21.9 Gastro-esophageal reflux disease without esophagitis; F41.1 Generalized anxiety disorder; G93.41 Metabolic encephalopathy; H91.90 Unspecified hearing loss, unspecified ear; I10 Essential (primary) hypertension; I25.10 Atherosclerotic heart disease of native coronary artery without angina pectoris; K44.9 Diaphragmatic hernia without obstruction or gangrene; K57.30 Diverticulosis of large intestine without perforation or abscess without bleeding; M19.90 Unspecified osteoarthritis, unspecified site; N28.1 Cyst of kidney, acquired; Z87.440 Personal history of urinary (tract) infections; Z87.891 Personal history of nicotine dependence; Z90.49 Acquired absence of other specified parts of digestive tract; N28.9 Disorder of kidney and ureter, unspecified; Z88.0 Allergy status to penicillin; K31.7 Polyp of stomach and duodenum; D13.0 Benign neoplasm of esophagus; K29.50 Unspecified chronic gastritis without bleeding; K57.10 Diverticulosis of small intestine without perforation or abscess without bleeding